=== PATIENT | male | born 1950 | race Caucasian/White ===

== ENCOUNTER 2017-01-04 10:05 | Inpatient (IN) | payer MEDICARE, BC ==
[2017-01-04] MEDS ORDERED: Albuterol-Ipratrop 3 mg / 0.5 (3 ml) UD ONE (10:11)
[2017-01-04] MEDS ORDERED: cefTRIAXone 1 gm 1 GM/100 ML BAG IV STA (10:13)
[2017-01-04] MEDS ORDERED: Magnesium Sulfate 2 GM in Sodium Chloride 0.9% 100 ML IVPB ONE (10:13)
[2017-01-04] MEDS ORDERED: Azithromycin 500MG/NS 250ml 500 MG/250 ML BAG IVPB STA (10:13)
[2017-01-04] MEDS: Albuterol-Ipratrop 3 mg / 0.5 (3 ml) UD IH SCH ×2 (10:23→10:43)
[2017-01-04 10:37] LABS: ADD MANUAL DIFF? NO
--- NOTE | 2017-01-04 10:43 | ED PDOC ---
Arrival/HPI - General Chief Complaint: Shortness Of Breath Time Seen by Provider: 01/04/17 10:10 Historian: Patient - History of Present Illness Narrative History of Present Illness (Text): 01/04/17 12:48 66-year-old male with a history of smoking and COPD/emphysema, presents emergency department with shortness of breath via EMS. Patient's family member reports this episode is similar to his previous COPD exacerbation episodes. No relieving or exacerbating factors. Patient admits to still smoking. Denies any chest pain. Denies any fevers or chills, no other complaints. Time/Duration: Prior to Arrival Symptom Onset: Sudden Activities at Onset: Rest Modifying Factors (Text): none Past Medical History - Provider Review Nursing Documentation Reviewed: Yes - Infectious Disease Hx of Infectious Diseases: None - Pulmonary Hx Emphysema: Yes - Psychiatric Hx Substance Use: No Family/Social History - Physician Review Nursing Documentation Reviewed: Yes Family/Social History: No Known Family HX Smoking Status: Heavy Smoker > 10 Cigarettes Daily Hx Alcohol Use: No Hx Substance Use: No Allergies/Home Meds Allergies/Adverse Reactions: Allergies Unobtainable Allergy (Unverified 01/04/17 10:11) Home Medications: Home Meds Medication Instructions Recorded Confirmed Unobtainable 01/04/17 01/04/17 Review of Systems - Review of Systems Systems not reviewed;Unavailable: Acuity of Condition Physical Exam - Physical Exam Narrative Physical Exam (Text): Physical exam Patient appears age appropriate in no distress - Systems Exam Head: Present: Atraumatic, Normocephalic Pupils: Present: PERRL Extroacular Muscles: Present: EOMI Conjunctiva: Present: Normal Mouth: Present: Dry Mucous Membranes Neck: Present: Normal Range of Motion. No: MIDLINE TENDERNESS, Paraspinal Tenderness Respiratory/Chest: Present: Tachypnea, accessory muscle use, moderate respiratory distress, diffuse wheezing in all lung hernandez. Cardiovascular: Present: Tachycardic, JVD Abdomen: Present: Normal Bowel Sounds. No: Tenderness, Distention, Peritoneal Signs, Rebound, Guarding Back: Present: Normal Inspection. No: Midline Tenderness, Paraspinal Tenderness Upper Extremity: Present: Normal Inspection. No: Cyanosis, Edema Lower Extremity: Present: Normal Inspection. No: Edema Neurological: Present: GCS=15, cranial nerves II through XII fully intact with no cerebellar abnormality, neurosensory fully intact. No focal neurological deficits. Skin: Present: Warm, Dry, Normal Color. No: Rashes Lymphatic: Present: OX3, NI, NC Psychiatric: Present: Alert, Oriented x 3, Normal Insight, Normal Concentration Physical Exam Limitations: Clinical Condition Vital Signs Reviewed: Yes Vital Signs Temp Pulse Resp BP Pulse Ox 01/04/17 13:12 118 H 20 98/63 L 97 01/04/17 12:05 134 H 20 100/62 98 01/04/17 11:30 204 H 24 98/64 L 98 01/04/17 10:13 98.0 F 138 H 25 H 188/125 H 01/04/17 10:10 26 H 95 01/04/17 10:08 144 H 21 188/125 H 90 L Blood Pressure: Hypertensive Pulse: Tachycardic Respiratory Rate: Normal Appearance: Positive for: Well-Appearing, Non-Toxic, Comfortable Pain Distress: None Mental Status: Positive for: Alert and Oriented X 3 Medical Decision Making ED Course and Treatment: Impression: 58-year-old male with respiratory distress, wheezing and accessory muscle use on examination. Seen immediately upon arrival into the emergency department. Respiratory cough for BiPAP. Differential Diagnosis include but are not limited to: COPD, emphysema, pneumonia Plan: -- EKG -- chest xray -- labs -- Respiratory treatment (peak flow) -- Duoneb, Zithromax, Solumedrol, Rocephin, IV fluid, Magnesium Sulfate, Adenosine -- Reassess and disposition Progress Notes: EKG: Ordered, reviewed, and independently interpreted the EKG. Rate : 200 BPM Rhythm : Sinus Tachycardia Interpretation : SVT Comparison : No previous EKG for comparison. Chest xray: Creator : Gus Casanova MD IMPRESSION: COPD. Infiltrate at right lung base. 01/04/17 11:15 Called to bedside, patient is tachycardic around 200s EKG shows SVT Adenosine ordered. Before adenosine given patient's heart rate spontaneously came down to 140s again. Repeat EKG shows sinus tachycardia Patient's respiratory status greatly improved on BiPAP with nebulizers 01/04/17 11:35 Spoke with Night Club Manager, Dr. Higgins Patient seen and accepted to his service by Dr. Thiago Emerson evaluated patient as well 01/04/17 12:10 Seen by stagecraft professor and resident, accepted to the MICU Recommends chest CT, with contrast, on the way to patient's room Order placed - Critical Care Critical Care Minutes: 30 minutes - Lab Interpretations Lab Results: 01/04/17 10:20 01/04/17 10:20 Lab Results 01/04/17 10:20: PT 11.9 H, INR 1.10 H, APTT 28.1 01/04/17 10:20: Sodium 133, Chloride 88 L, Potassium 4.8, Carbon Dioxide 34 H, Anion Gap 16, BUN 13, Creatinine 0.5, Est GFR ( Amer) > 60, Est GFR (Non- Af Amer) > 60, Random Glucose 101, Calcium 9.4, Total Bilirubin 1.2, AST 24, ALT 25, Alkaline Phosphatase 75, Lactate Dehydrogenase 408, Total Creatine Kinase 36, Troponin I < 0.01, NT-Pro-B Natriuret Pep 101, Total Protein 8.6 H, Albumin 4.5, Globulin 4.1, Albumin/Globulin Ratio 1.1 01/04/17 10:20: pO2 32, VBG pH 7.28 L, VBG pCO2 78.0 H*, VBG HCO3 36.7 H, VBG Total CO2 39.1 H, VBG O2 Sat (Calc) 65.9 H, VBG Base Excess 7.0 H, VBG Potassium 4.8, Sodium 131.0 L, Chloride 91.0 L, Glucose 103, Lactate 3.6 H, FiO2 21.0, Venous Blood Potassium 4.8 01/04/17 10:20: WBC 13.2 H, RBC 5.39, Hgb 17.6, Hct 51.2, MCV 95.0, MCH 32.7, MCHC 34.4, RDW 15.2 H, Plt Count 179, MPV 9.1, Gran % 91.3 H, Lymph % (Auto) 5.7 L, Jennings % (Auto) 2.7, Eos % (Auto) 0.1 L, Baso % (Auto) 0.2, Gran # 12.08 H , Lymph # 0.8 L, Jennings # 0.4, Eos # 0.0, Baso # 0.02 I have reviewed the lab results: Yes - RAD Interpretation Radiology Orders: 01/04/17 10:12 CHEST PORTABLE [RAD] Stat - EKG Interpretation Interpreted by ED Physician: Yes Type: 12 lead EKG - Medication Orders Current Medication Orders: Albuterol Sulfate (Albuterol 0.042% Inhal [place] (1.25mg/3ml) Ud) 1.25 mg IH Q3H PAMELA Sodium Chloride (Sodium Chloride 0.9%) 2,000 mls @ 100 mls/hr IV .Q20H PAMELA Ceftriaxone Sodium (Rocephin 2 Gm Ivpb) 2 gm in 100 mls @ 100 mls/hr IVPB DAILY PAMELA PRN Reason: Protocol Azithromycin (Zithromax 500mg In Ns) 500 mg in 250 mls @ 167 mls/hr IVPB DAILY PAMELA PRN Reason: Protocol Methylprednisolone (Solu-Medrol) 60 mg IVP Q12 PAMELA Discontinued Medications Adenosine (Adenosine 6 Mg/2 Ml Inj) 6 mg IVP STAT STA Stop: 01/04/17 11:24 Adenosine (Adenosine 6 Mg/2 Ml Inj) Confirm Administered Dose 12 mg .ROUTE .STK- MED ONE Stop: 01/04/17 11:25 Albuterol/Ipratropium (Duoneb 3 Mg/0.5 Mg (3 Ml) Ud) Confirm Administered Dose 9 ml .ROUTE .STK-MED ONE Stop: 01/04/17 10:12 Last Admin: 01/04/17 10:12 Dose: 9 ml Albuterol/Ipratropium (Duoneb 3 Mg/0.5 Mg (3 Ml) Ud) 3 ml IH Q15M [facility] Stop: 01/04/17 10:46 Last Admin: 01/04/17 10:43 Dose: 3 ml Magnesium Sulfate 2 gm/ Sodium (Chloride) 104 mls @ 102 mls/hr IVPB ONCE ONE Stop: 01/04/17 11:14 Last Admin: 01/04/17 11:05 Dose: 102 mls/hr Ceftriaxone Sodium (Rocephin 1 Gram Ivpb) 1 gm in 100 mls @ 200 mls/hr IV STAT STA PRN Reason: Protocol Stop: 01/04/17 10:42 Last Admin: 01/04/17 10:31 Dose: 200 mls/hr Azithromycin (Zithromax 500mg In Ns) 500 mg in 250 mls @ 167 mls/hr IVPB STAT STA PRN Reason: Protocol Stop: 01/04/17 11:42 Last Admin: 01/04/17 12:38 Dose: 167 mls/hr Iodixanol (Visipaque 320 Mg/Ml 100 Ml) Confirm Administered Dose 100 ml IV .STK- MED ONE Stop: 01/04/17 12:21 Methylprednisolone (Solu-Medrol) 125 mg IVP STAT STA Stop: 01/04/17 10:13 Last Admin: 01/04/17 10:22 Dose: 125 mg - Yosefibe Statement The provider has reviewed the documentation as recorded by the Yosefibparam Thakkar All medical record entries made by the Ibrahima were at my direction and personally dictated by me. I have reviewed the chart and agree that the record accurately reflects my personal performance of the history, physical exam, medical decision making, and the department course for this patient. I have also personally directed, reviewed, and agree with the discharge instructions and disposition. Disposition/Present on Arrival - Present on Arrival Any Indicators Present on Arrival: No History of DVT/PE: No History of Uncontrolled Diabetes: No Urinary Catheter: No History of Decub. Ulcer: No History Surgical Site Infection Following: None - Disposition Have Diagnosis and Disposition been Completed?: Yes Diagnosis: Respiratory distress Disposition: HOSPITALIZED Disposition Time: 12:30 Patient Plan: Admission Patient Problems: Current Active Problems Problem Status Onset Respiratory distress Acute Condition: CRITICAL
[2017-01-04 10:46] LABS: BASO # 0.02 K/mm3 (0.0-2.0); BASO % 0.2 % (0.0-3.0); EOS % 0.1 % (1.5-5.0); GRAN # 12.08 (1.4-6.5); GRAN % 91.3 % (50.0-68.0); HEMATOCRIT 51.2 % (42.0-52.0); LYMPH # 0.8 (1.2-3.4); LYMPH % 5.7 % (22.0-35.0); MEAN CORPUSCULAR HEMOGLOBIN 32.7 pg (25.0-35.0); MEAN CORPUSCULAR HGB CONC 34.4 g/dl (31.0-37.0); MEAN PLATELET VOLUME 9.1 fl (7.0-11.0); MONO # 0.4 (0.1-0.6); MONO % 2.7 % (1.0-6.0); PLATELET COUNT 179 10^3/uL (120.0-450.0); RED CELL DISTRIBUTION WIDTH 15.2 % (11.5-14.5); VENOUS BLOOD PH 7.28 (7.32-7.43); WHITE BLOOD COUNT 13.2 10^3/ul (4.5-11.0)
[2017-01-04 10:51] LABS: ALB/GLOB RATIO 1.1 (1.1-1.8); ALKALINE PHOSPHATASE 75 U/L (38-133); ALT/SGPT 25 U/L (7-56); AST/SGOT 24 U/L (15-59); BILIRUBIN,TOTAL 1.2 mg/dL (0.2-1.3); BLOOD UREA NITROGEN 13 mg/dL (7-21); CALCIUM 9.4 mg/dL (8.4-10.5); CARBON DIOXIDE 34 mmol/L (21-33); CHLORIDE 88 mmol/L (98-107); GFR AFRICAN-AMERICAN > 60; GLUCOSE,RANDOM 101 mg/dL (70-110); POTASSIUM 4.8 mmol/L (3.6-5.0); SODIUM 133 mmol/L (132-148); TOTAL PROTEIN 8.6 g/dL (5.8-8.3)
[2017-01-04 10:53] LABS: INR 1.1 (0.93-1.08); PARTIAL THROMBOPLASTIN TIME 28.1 Seconds (23.7-30.8)
[2017-01-04 11:08] LABS: TROPONIN I < 0.01 ng/mL
[2017-01-04] MEDS ORDERED: Iodixanol 320 MG/ML 100 ML BOTTLE IV ONE (12:20)
--- NOTE | 2017-01-04 12:40 | RAD ---
HISTORY: cough COMPARISON: No prior. FINDINGS: LUNGS: There is an infiltrate at the right lung base suspicious for pneumonia. The lungs are hyperaerated consistent with emphysema. PLEURA: No significant pleural effusion identified, no pneumothorax apparent. CARDIOVASCULAR: Normal. OSSEOUS STRUCTURES: No significant abnormalities. VISUALIZED UPPER ABDOMEN: Normal. OTHER FINDINGS: None. IMPRESSION: COPD. Infiltrate at right lung base
[2017-01-04] MEDS ORDERED: Sodium Chloride 0.9% 2,000 ML IV SCH ×2 (12:45→13:23)
--- NOTE | 2017-01-04 13:17 | CON ---
DATE: 01/04/2017 PULMONARY CONSULTATION REASON FOR CONSULTATION: Chronic obstructive pulmonary disease. REFERRING PHYSICIAN: Dc Das DO. History is obtained via extensive discussion with Dr. Kang (Emergency Room) . I also discussed the history with the [id number] at length. The patient is currently on BiPAP. I have also reviewed the chart at length. The patient is a 66-year-old male with past medical history significant for advanced chronic obstructive pulmonary disease, extensive smoking history - still smokes, who presents to [facility] with worsening shortness of breath, dyspnea on exertion, and cough starting earlier today. There is no history of sputum production. There is no history of chest pain, coughing up of blood, or chest pain - made worse with deep respirations. There is no history of temperatures, chills, or infectious exposure. There is no history of night sweats, weight loss, or appetite change prior to the above events. No history of leg or calf pains. No history of syncope or diaphoresis. No history of recent travel or trauma. REVIEW OF SYSTEMS: No history of nausea, vomiting, or diarrhea. No acute urinary symptoms. No new neurological or musculoskeletal complaints. The rest of the review of systems is negative. ALLERGIES: No known allergies. SOCIAL HISTORY: Positive for extensive tobacco usage--still smokes. No alcohol. FAMILY HISTORY: No inheritable diseases. HOME MEDICATIONS: Not listed in the computer at the present time. PHYSICAL EXAMINATION: GENERAL: The patient is mildly short of breath, but in no acute distress. He is using some accessory muscles for breathing. VITAL SIGNS: Temperature is 98.0, pulse 134, respirations 24, blood pressure 100/62. Oxygen saturation on BiPAP is 98%. HEENT: Normocephalic, atraumatic. NECK: No JVD. CARDIOVASCULAR: Positive S1, S2. No S3. LUNGS: Decreased breath sounds at the bases. Scattered bilateral rhonchi are appreciated. Minimal wheezing is also appreciated. EXTREMITIES: No clubbing, cyanosis, or edema. Calves are nontender to palpation. GASTROINTESTINAL: Abdomen is soft, nontender, nondistended. Bowel sounds are positive. SKIN: No acute rash or excoriation. NEUROLOGIC: Limited at the present time. PERTINENT LABORATORY DATA: Chest x-ray was done today and reviewed. There is extensive COPD noted. There is an infiltrate versus scar at the right base. CBC: White count 13.2, hemoglobin 17.6, hematocrit 51.2, platelets of 179. Complete metabolic profile: Chloride 88, carbon dioxide 34, total protein 8.6. The rest of the metabolic profile is within normal limits. EKG was done in the Emergency Room. Results: Supraventricular tachycardia at approximately 135 beats per minute. IMPRESSION: 1. Acute bronchitis. 2. Advanced chronic obstructive pulmonary disease. 3. Respiratory insufficiency. 4. Rule out pneumonia - right base. 5. Supraventricular tachycardia. PLAN: Again, I did discuss the case with the [id number] at length. I also discussed the case with Dr. Kang at length. The patient presents to [facility] with worsening shortness of breath at rest, dyspnea on exertion, and cough - starting earlier today. The [id number] reports no other pulmonary symptoms. The patient did present to the [facility] Emergency Room with accessory muscle usage and was placed on BiPAP. I did review the x-ray as above. There is a questionable infiltrate versus scar noted at the right lung base. I have also discussed the case with the medical radiation tech at length. Nebulizer treatments and intravenous steroids will be started. Antibiotic therapy has also been started. CAT scan of the chest - angiogram protocol - has also been ordered. Arterial blood gas has also been ordered. The patient's overall condition is very guarded at this point in time. He will be admitted to the medical ICU. I will discuss the above with the rest of the ICU team in the next few moments. I did discuss the above with Dr. Das earlier this morning. Additional pulmonary intervention will be based on the above results, as well as the clinical status of the patient. Thank you very much for this pulmonary consultation. Mic Emerson MD cc: [id number] TT: 01/04/2017 13:16:24 Confirmation # [id number] Dictation # [id number] MTDD
[2017-01-04 13:21] LABS: ARTERIAL BLOOD GAS HCO3 29.7 mmol/L (21-28); ARTERIAL BLOOD GAS O2 CAPACITY 19.1 mL/dl (16-24); ARTERIAL BLOOD GAS O2 CONTENT 18.2 ML/dl (15-23); ARTERIAL BLOOD GAS PH 7.31 (7.35-7.45); ARTERIAL BLOOD HGB O2 SAT 88.8 % (95.0-98.0); CARBOXYHEMOGLOBIN 6.3 % (0.5-1.5); HHB 4.4 % (0-5); METHEMOGLOBIN 0.5 % (0.0-3.0)
[2017-01-04] MEDS: Albuterol 0.042% Inhal Sol (1.25 mg/3 mL) UD IH SCH ×4 (13:34→22:21)
--- NOTE | 2017-01-04 13:37 | CT ---
PROCEDURE: CT Chest with contrast (Pulmonary Angiogram) HISTORY: r/o PE COMPARISON: None available. TECHNIQUE: Axial computed tomography images were obtained of the chest in the pulmonary arterial phase of enhancement. Coronal and sagittal reformatted images were created and reviewed. Intravenous contrast dose: 100 cc of Visipaque Radiation dose: Total exam DLP = 170 mGy-cm. This CT exam was performed using one or more of the following dose reduction techniques: Automated exposure control, adjustment of the mA and/or kV according to patient size, and/or use of iterative reconstruction technique. FINDINGS: PULMONARY ARTERIES: Unremarkable. No pulmonary embolism. AORTA: No acute findings. No thoracic aortic aneurysm. LUNGS: There is COPD with emphysematous changes throughout the lungs. There is a right lower lobe pneumonia posteriorly. PLEURAL SPACES: Unremarkable. No effusion or pneuomothorax. HEART: Unremarkable. No cardiomegaly. No significant pericardial effusion. LYMPH NODES: No lymphadenopathy. BONES, CHEST WALL: Unremarkable. No fracture or destructive lesion OTHER FINDINGS: Unremarkable. IMPRESSION: COPD. Right lower lobe pneumonia. No evidence of pulmonary embolus
[2017-01-04 13:40] VITALS: BMI 16.7
[2017-01-04 14:16] LABS: VENOUS BLOOD GAS BASE EXCESS 0.5 mmol/L (0.0-2.0)
--- NOTE | 2017-01-04 15:19 | CP.PCM.CON ---
<Nirmal Don - Last Filed: 01/04/17 15:00> History of Present Illness - History of Present Illness History of Present Illness: ICU Consult Note Nirmal Don, PGY-1 Internal Medicine HPI: This is a 66 yo M with PMH of COPD/Emphysema and active tobacco abuse who presented with acute onset shortness of breath requiring Bipap and steroids. HPI/ROS are limited and primarily from family at bedside, as patient was on Bipap at time of exam and was unable to speak. Onset of shortness of breath was rapid, began today while visiting a social club, not triggered by activity. Family reports similar to prior COPD exacerbations, but worse this time. Baseline activity status is shortness of breath walking more than one room of his house at a time. Patient denies pain with respiration, chest pain, nausea/ emesis, cough, or syncope/near-syncope. On arrival to the ED, patient was in acute respiratory distress, necessitating BiPAP and administration of multiple Duonebs, however patient then developed SVT in the 200's. Duonebs were stopped, and after 2-3 minutes, patient's HR returned to rapid sinus rhythm (140's) without use of Adenosine. Review of Systems - Review of Systems Systems not reviewed;Unavailable: Respiratory Distress (short of breath, unable to speak on bipap), Language Barrier - Constitutional Constitutional: absent: Chills, Fever - EENT Eyes: absent: Blurred Vision, Loss of Vision Ears: absent: Dizziness Nose/Mouth/Throat: absent: Sore Throat, Neck Pain - Cardiovascular Cardiovascular: Dyspnea (acute onset, not triggerred or exacerbated by activity) . absent: Chest Pain, Diaphoresis, Lightheadedness, Palpitations, Syncope - Respiratory Respiratory: Dyspnea (acute onset, not triggerred or exacerbated by activity). absent: Cough, Hemoptysis, Pain on Inspiration - Gastrointestinal Gastrointestinal: absent: Abdominal Pain, Nausea, Vomiting - Genitourinary Genitourinary: absent: Dysuria, Flank Pain, Hematuria - Musculoskeletal Musculoskeletal: absent: Abnormal Gait, Muscle Weakness, Numbness - Integumentary Integumentary: absent: Pruritus, Rash - Neurological Neurological: absent: Focal Weakness, Loss of Vision, Syncope, Vertigo, Weakness , Other Visual Disturbances - Psychiatric Psychiatric: absent: Anxiety - Endocrine Endocrine: absent: Fatigue, Palpitations Past Patient History - Infectious Disease Hx of Infectious Diseases: None - Past Social History Smoking Status: Heavy Smoker > 10 Cigarettes Daily - PULMONARY Hx Emphysema: Yes - MUSCULOSKELETAL/RHEUMATOLOGICAL Hx Falls: No - PSYCHIATRIC Hx Substance Use: No - SURGICAL HISTORY Hx Surgeries: No Meds Allergies/Adverse Reactions: Allergies Allergy/AdvReac Type Severity Reaction Status Date / Time Unobtainable Allergy Unverified 01/04/17 10:11 - Medications Medications: Current Medications Albuterol Sulfate (Albuterol 0.042% Inhal Bethany (1.25mg/3ml) Ud) 1.25 mg IH Q3H [facility] Last Admin: 01/04/17 13:34 Dose: 1.25 mg Ceftriaxone Sodium (Rocephin 2 Gm Ivpb) 2 gm in 100 mls @ 100 mls/hr IVPB DAILY [facility] PRN Reason: Protocol Azithromycin (Zithromax 500mg In Ns) 500 mg in 250 mls @ 167 mls/hr IVPB DAILY [facility] PRN Reason: Protocol Sodium Chloride (Sodium Chloride 0.9%) 2,000 mls @ 999 mls/hr IV .Q2H1M [facility] Stop: 01/04/17 15:23 Methylprednisolone (Solu-Medrol) 60 mg IVP Q12 [facility] Last Admin: 01/04/17 13:20 Dose: 60 mg Physical Exam - Constitutional Appears: In Acute Distress, Chronically Ill, Other (Severely cachetic, non- toxic but actively-ill appearing) - Head Exam Head Exam: ATRAUMATIC, NORMAL INSPECTION, NORMOCEPHALIC - Eye Exam Eye Exam: EOMI, Normal appearance, PERRL. absent: Conjunctival injection, Scleral icterus (dirty sclera, but no icterus) Pupil Exam: NORMAL ACCOMODATION, PERRL. absent: Fixed, Irregular, Unequal - ENT Exam Additional comments: unable to assess, wearing BiPAP mask at time of exam - Neck Exam Neck exam: Positive for: Normal Inspection. Negative for: Thyromegaly - Respiratory Exam Respiratory Exam: Accessory Muscle Use, Decreased Breath Sounds (very poorly heard and distant sounding breath sounds in all auscultated hernandez, anteriorly/ laterally/posteriorly), Prolonged Expiratory Phase, Respiratory Distress. absent: Chest Wall Tenderness, Clear to Auscultation Bilateral, Rales, Rhonchi, Wheezes, NORMAL BREATHING PATTERN (tachypnic, on BiPAP) - Cardiovascular Exam Cardiovascular Exam: Tachycardia, REGULAR RHYTHM, +S1, +S2. absent: Bradycardia , RRR, +S4 - GI/Abdominal Exam GI & Abdominal Exam: Firm, Pulsatile Mass. absent: Diminished Bowel Sounds, Distended, Hyperactive Bowel Sounds, Hypoactive Bowel Sounds, Rigid, Soft, Tenderness Additional comments: Cachetic - Rectal Exam Rectal Exam: Deferred - Extremities Exam Extremities exam: Positive for: normal inspection. Negative for: calf tenderness, pedal edema, tenderness, pedal pulses present (unable to palpate) - Neurological Exam Neurological exam: Alert, Oriented x3 Additional comments: Motor grossly intact - Psychiatric Exam Psychiatric exam: Normal Affect, Normal Mood - Skin Skin Exam: Dry, Intact, Normal Color, Warm Results - Vital Signs Recent Vital Signs: Last Vital Signs Temp 98.0 F 01/04/17 10:13 Pulse 108 H 01/04/17 14:07 Resp 27 H 01/04/17 13:29 BP 102/66 01/04/17 13:29 Pulse Ox 97 01/04/17 13:12 - Labs Result Diagrams: 01/04/17 10:20 01/04/17 10:20 Labs: Laboratory Results - last 24 hr 01/04/17 01/04/17 13:15 14:11 pCO2 59 H pO2 66.0 L 26 L HCO3 29.7 H ABG pH 7.31 L ABG Total CO2 31.5 H ABG O2 Saturation 95.3 ABG O2 Content 18.2 ABG Base Excess 1.9 ABG Hemoglobin 14.6 ABG Carboxyhemoglobin 6.3 H POC ABG HHb (Measured) 4.4 ABG Methemoglobin 0.5 ABG O2 Capacity 19.1 VBG pH 7.20 L VBG pCO2 79.0 H* VBG HCO3 30.9 H VBG Total CO2 33.3 H VBG O2 Sat (Calc) 57.4 VBG Base Excess 0.5 VBG Potassium 3.9 Hgb O2 Saturation 88.8 L Sodium 133.0 Chloride 96.0 L Glucose 119 H Lactate 3.7 H FiO2 32.0 21.0 Venous Blood Potassium 3.9 Assessment & Plan - Assessment and Plan (Free Text) Assessment: This is a 66 yo M with PMH of COPD/Emphysema and active tobacco abuse who was admitted to the ICU for respiratory insufficiency/pending resp failure requiring BiPAP and new onset SVT. Plan: Neuro: -awake and alert, following commands appropriately -maintain normothermia -high fall risk protocol -PT/OT Pulm: -Satting well on BiPAP, will attempt to wean to NC O2 as feasible -Nebs, Mag Sulfate, and Bipap in ED -Conservative O2 management, avoid excessive O2 in setting of COPD -goal SaO2 > 88%, paO2 > 60 -full code per patient; intubation may be necessary if he isn't able to tolerate BiPAP/NC -CXR shows hyperinflated lungs consistent with COPD, CT Chest negative for PE but positive for RLL pneumonia -ABG on Bipap obtained, pCO2 59, pO2 66, HCO3 29.7, pH 7.31, on FiO2 32%; switched to NC 3L as per RT -Covering with Rocephin and Zithromax IV as per Pulm -Pulm (Dr. Joseph) on board, appreciate all recs -Albuterol IH q3 PAMELA, solumedrol 60mg IV q12 -Repeat CXR and ABG in AM, f/u -Nebs, Mag Sulfate, and Bipap in ED -Likely End-stage COPD, will consult Palliative for goals of care Cardio: -initially rapid rate, regular rhythm in 100's-110's on arrival, SVT x2-3 minutes s/p aggressive duonebs tx, resolved with cessation of duonebs -Adenosine was ordered, but patient broke SVT rhythm prior to administration, so never given -Cardio (Dr. Kam) consulted, appreciate all recs -Heparin SC for DVT ppx GI: -Advanced diet size and thin liquids, as per swallow specialist -Protonix for GI ppx -Very cachetic, Agribusiness Professor consulted for nutrition recs Renal: -Cr 0.5, may see subsequent increase 2/2 dye challenge from CTA -s/p 2L NS bolus, if poor PO intake will add maintenance IVF -monitor and replete electrolytes as needed -avoid nephrotoxic drugs where feasible -maintain euglycemia Heme: -Hgb elevated at 17.6, likely hemoconcentrated, continue to monitor -Heparin for DVT ppx ID: -WBCs 13.2, afebrile -CT chest notable for RLL pneumonia, covering with Rocephin and Zithromax IV -Blood cultures and MRSA screen ordered, pending Endo: -maintain euglycemia (BG 140-180) -on solumedrol, so will experience elevated blood sugars, if remain elevated above 200 can consider adding a sliding scale Dispo: ICU, pending Pulm and Cardio input FEN: Advanced bite size + thin liquids Access: Peripheral IV Consults: Cardio, Pulm, Palliative Ppx: Protonix for GI, Heparin for DVT Patient seen, examined, and discussed with attending, Dr. Higgins. - Date & Time Date: 01/04/17 Time: 16:11 <Gisela MCFARLAND,Daniellevinny H - Last Filed: 01/04/17 16:41> Meds - Medications Medications: Current Medications Albuterol Sulfate (Albuterol 0.042% Inhal Bethany (1.25mg/3ml) Ud) 1.25 mg IH Q3H [facility] Last Admin: 01/04/17 16:09 Dose: 1.25 mg Heparin Sodium (Porcine) (Heparin) 5,000 units SC Q12 [facility] PRN Reason: Protocol Ceftriaxone Sodium (Rocephin 2 Gm Ivpb) 2 gm in 100 mls @ 100 mls/hr IVPB DAILY [facility] PRN Reason: Protocol Azithromycin (Zithromax 500mg In Ns) 500 mg in 250 mls @ 167 mls/hr IVPB DAILY [facility] PRN Reason: Protocol Methylprednisolone (Solu-Medrol) 60 mg IVP Q12 [facility] Last Admin: 01/04/17 13:20 Dose: 60 mg Pantoprazole Sodium (Protonix Inj) 40 mg IVP DAILY [facility] Results - Vital Signs Recent Vital Signs: Last Vital Signs Temp 98.0 F 01/04/17 10:13 Pulse 105 H 01/04/17 16:31 Resp 24 01/04/17 16:31 BP 122/49 L 01/04/17 16:31 Pulse Ox 93 L 01/04/17 16:31 - Labs Result Diagrams: 01/04/17 10:20 01/04/17 10:20 Labs: Laboratory Results - last 24 hr 01/04/17 01/04/17 13:15 14:11 pCO2 59 H pO2 66.0 L 26 L HCO3 29.7 H ABG pH 7.31 L ABG Total CO2 31.5 H ABG O2 Saturation 95.3 ABG O2 Content 18.2 ABG Base Excess 1.9 ABG Hemoglobin 14.6 ABG Carboxyhemoglobin 6.3 H POC ABG HHb (Measured) 4.4 ABG Methemoglobin 0.5 ABG O2 Capacity 19.1 VBG pH 7.20 L VBG pCO2 79.0 H* VBG HCO3 30.9 H VBG Total CO2 33.3 H VBG O2 Sat (Calc) 57.4 VBG Base Excess 0.5 VBG Potassium 3.9 Hgb O2 Saturation 88.8 L Sodium 133.0 Chloride 96.0 L Glucose 119 H Lactate 3.7 H FiO2 32.0 21.0 Venous Blood Potassium 3.9 Attending/Attestation - Attestation I have personally seen and examined this patient.: Yes I have fully participated in the care of the patient.: Yes I have reviewed all pertinent clinical information: Yes Notes (Text): 01/04/17 16:38 66 y/o M w/ COPD exacerbation 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 Poor air entry B/L. Brief SVT resolved after Albuterol effect worn off. Currently on 3 L N.C o2 sat> 92% CT chest done, shows RLL infiltrate. On Rocephin x 8 days Solumedrol 60mg bid, Duoneb q4 standing. Needs Pulmonary Rehab. Walk distance at home 50 feet. Poor QOL. Needs palliative care. dvt p Heparin sq tid cc time 65 min
--- NOTE | 2017-01-04 15:27 | HP ---
HISTORY OF PRESENT ILLNESS: I was called down to the Emergency Room earlier today by Dr. Kang to talk about the patient who is on BiPAP in [facility], bed 7 , finally starting to breathe a little bit better. He had multiple nebulizer treatments that put him into a very fast heart rate, up to 200. It is now down to 140. He is going to go to the intensive care unit for shortness of breath and rapid heart rate, probably SVT. He is here with his family member who speaks [place] and Swiss. His father only speaks [place]ese. He is much more comfortable now by the time I got there since he had nebulizer treatments and high dose oxygen. He is still smoking and he is very uncomfortable at this time in the hospital Emergency Room. PAST MEDICAL HISTORY: COPD, emphysema. No substance abuse. Occasional alcohol. FAMILY HISTORY: No known family history. SOCIAL HISTORY: He still smokes half a pack a day. I do not have his allergy list nor his medication list. They will have to get that to me. REVIEW OF SYSTEMS: No acute vision or hearing changes. He is completely short of breath, very frail, looks like he weighs 80 pounds soaking wet. He can move all his extremities, questionable chest pain with the shortness of breath. No abdominal pain, nausea, vomiting. No headaches or dizziness. PHYSICAL EXAMINATION: VITAL SIGNS: He has 98 temp, up to 204 pulse, up to 26 respiratory rate, blood pressure 188/125 with a 90% O2 sat. HEENT: Head is atraumatic, normocephalic. Throat is dry. NECK: Supple. EYES: Extraocular muscles are intact. Pupils are equal, reactive to light. HEART: Regular rate, extremely tachycardic. LUNGS: Decreased breath sounds bilaterally, almost no airway motion. There is wheezing bilaterally, both hernandez. ABDOMEN: Soft, nontender, positive bowel sounds, no guarding, no rebound, no CVA tenderness, although the belly is scaphoid. EXTREMITIES: Have no edema. He moves all 4 extremities. NEUROLOGICAL: GCS is 15. Cranial nerves grossly intact. No gross neurologic dysfunction at this time. SKIN: Warm and dry. He is thin and frail. He is alert and oriented x 3 through his son translating. Thyroid midline. No palpable lymphadenopathy. LABORATORY DATA: He had multiple tests. He has a 133 sodium, potassium 4.8, BUN 13, creatinine 0.5, GFR is greater than 60, sugar is 101. Calcium is 9.4, total bili is 1.2, AST is 24, ALT is 25, alk phos 75. dehydrogenase is 408. Troponin I is less than 0.01. BNP is 101, total protein is 8.6, albumin is 4.5. Blood gas: He had a pCO2 of 59 with a pO2 of 66, a 7.2 pH. INR is 1.1. White count is up to 13.2, hemoglobin 17.6, hematocrit 51.2, platelets are 179. He had a CAT scan of the chest and a chest x-ray. Chest CAT scan shows COPD, right lower lobe pneumonia. No evidence of PE. He is currently on albuterol, ceftriaxone, IV fluids, which are wide open right now; Solu-Medrol 60 IV q.12, which is a large dose and Zithromax IV. He was here for COPD, right lower lobe pneumonia, tachycardia, probably SVT. Have a consult with pulmonary and cardio and the endocrinology teacher. He will go in the intensive care unit. We will watch him very closely. Discuss with the family. Dc Das DO cc: [id number] TT: 01/04/2017 15:26:31 sn MTDD
--- NOTE | 2017-01-04 20:56 | CARD ---
APPROVED REPORT EKG Measurement Heart [id number] <Conclusion> Sinus tachycardia with premature supraventricular complexes and fusion complexes Right axis deviation Anterior infarct, age undetermined Abnormal ECG
--- NOTE | 2017-01-04 20:57 | CARD ---
APPROVED REPORT EKG Measurement Heart [id number] <Conclusion> Poor data quality, interpretation may be adversely affected Supraventricular tachycardia Rightward axis Low voltage QRS Cannot rule out Anterior infarct, age undetermined ST & T wave abnormality, consider inferior ischemia Abnormal ECG
[2017-01-05] MEDS: Albuterol 0.042% Inhal Sol (1.25 mg/3 mL) UD IH SCH ×6 (00:32→21:36)
[2017-01-05 05:43] LABS: ARTERIAL BLOOD GAS HCO3 32.9 mmol/L (21-28); ARTERIAL BLOOD GAS O2 CAPACITY 19.1 mL/dl (16-24); ARTERIAL BLOOD GAS O2 CONTENT 18.5 ML/dl (15-23); ARTERIAL BLOOD GAS PH 7.28 (7.35-7.45); ARTERIAL BLOOD HGB O2 SAT 92.6 % (95.0-98.0); CARBOXYHEMOGLOBIN 3.4 % (0.5-1.5); METHEMOGLOBIN 1.1 % (0.0-3.0)
[2017-01-05 05:50] LABS: HEMATOCRIT 44.2 % (42.0-52.0); MEAN CELL VOLUME 95.3 fL (80.0-105.0); MEAN CORPUSCULAR HEMOGLOBIN 31.5 pg (25.0-35.0); RED CELL DISTRIBUTION WIDTH 15.5 % (11.5-14.5); WHITE BLOOD COUNT 12.3 10^3/ul (4.5-11.0)
[2017-01-05 06:04] LABS: ALB/GLOB RATIO 1.1 (1.1-1.8); ALKALINE PHOSPHATASE 49 U/L (38-133); ALT/SGPT 24 U/L (7-56); AST/SGOT 23 U/L (15-59); BLOOD UREA NITROGEN 15 mg/dL (7-21); CALCIUM 8.3 mg/dL (8.4-10.5); CARBON DIOXIDE 32 mmol/L (21-33); CHLORIDE 96 mmol/L (98-107); GFR AFRICAN-AMERICAN > 60; GLUCOSE,RANDOM 127 mg/dL (70-110); MAGNESIUM 2.1 mg/dL (1.7-2.2); PHOSPHOROUS 3.3 mg/dL (2.5-4.5); POTASSIUM 4.1 mmol/L (3.6-5.0); SODIUM 135 mmol/L (132-148); TOTAL PROTEIN 6.6 g/dL (5.8-8.3)
--- NOTE | 2017-01-05 07:44 | PN ---
DATE: 01/05/2017(615am--705am) SUBJECTIVE: The patient is currently in the ICU. He is mildly short of breath , but in no acute distress. PHYSICAL EXAMINATION: VITAL SIGNS: Temperature is 98.6, pulse 83, respirations 22/24, blood pressure 90/60. Oxygen saturation on nasal cannula is currently 95%. HEENT: Normocephalic, atraumatic. No JVD. CARDIOVASCULAR: Positive S1, S2. No S3. LUNGS: Decreased breath sounds at the bases. Less rhonchi. Less wheezing. EXTREMITIES: No clubbing, cyanosis, or edema. Calves are nontender to palpation. GASTROINTESTINAL: Abdomen is soft, nontender, nondistended. Bowel sounds are positive. SKIN: No acute rash. NEUROLOGIC: Limited at the present time. PERTINENT LABORATORY DATA: CAT scan of the chest was done yesterday as an angiogram protocol. There is no pulmonary embolism seen. There is severe chronic obstructive pulmonary disease. There is a small patchy right lower lobe pneumonia seen. Arterial blood gas was done on nasal cannula this morning. Results are: pH 7.28, pCO2 of 70, pO2 of 76. Chest x-ray was also done this morning and reviewed. It is similar to yesterday's film. IMPRESSION: 1. Acute bronchitis. 2. Advanced chronic obstructive pulmonary disease. 3. Respiratory insufficiency. 4. Right lower lobe pneumonia. 5. Cardiac arrhythmias. PLAN: The patient appears comfortable this morning. He is awake and alert. He is mildly short of breath, but in no acute distress. I did discuss the case with the night nurse at length. The night nurse stated that the patient did have a good night. However, he did refuse his BiPAP at night. I did discuss this issue with the patient at length. Hopefully, he will comply. I have also discussed the case with the territory sales manager medical at length. On physical exam, there is less bronchospasm noted. I will continue with the current nebulizer treatments and current intravenous steroids for now. The patient also remains on antibiotic therapy. There are no temperatures noted. The leukocytosis is decreased. Clinical status of the patient is certainly improved -- compared to yesterday. However, the overall status/prognosis of this patient does remain guarded. I will discuss the above with the entire ICU team in the next few moments. I will discuss the above with the attending physician later this morning. Mic Emerson MD cc: [id number] TT: 01/05/2017 07:44:00 Confirmation # [id number] Dictation # [id number] MTDD
--- NOTE | 2017-01-05 08:09 | PN ---
DATE: 01/05/2017 I saw him in the intensive care unit. He is refusing to put the BiPAP mask on, just has a nasal mira tushar on, but he is doing much better. He is talking better in Barb[place]. He is much better mentally an d he feels better physically. MEDICATIONS: He is on albuterol, heparin, Protonix, Rocephin 2 grams IV piggyback, Solu-Medrol at 60 IV q. 12 and Zithromax. He is also a little bit hungry. PHYSICAL EXAMINATION: VITAL SIGNS: He has got a 97.7 temp, 83 pulse, 96/67 blood pressure, 30 respiratory rate, and 98% O2 sat on nasal cannula. HEENT: His head is atraumatic, normocephalic. Throat is moist. NECK: Supple. HEART: Regular rate. LUNGS: Decreased breath sounds bilaterally, poor inspiration. ABDOMEN: Soft, scaphoid. EXTREMITIES: No edema. He is on the medications I discussed. LABORATORY DATA: His lab test: A 12.3 white count. It came down 1 point. 14.6 hemoglobin, 44.2 he matocrit with 142 platelets. He has a 135 sodium, potassium is 4.1, BUN 50, creatinine 0.5, GFR is g reater than 60, sugar is 127, calcium is 8.3, phosphorus 3.3, magnesium 2.1, total bili is 1, AST is 23, ALT is 24, alk phos 49, total protein 6.6, albumin is 3.4. He is improving. He is being seen by pulmonary. Cardiology was consulted. He has acute bronchitis, advanced chronic obstructive pulmonary disease, respiratory insufficiency, right lower lobe pneumoni a, cardiac arrhythmias which I believe have improved. His pulse was as high as 200, now it is down t o 80, blood pressure is still quite low. I think he might need another day in the intensive care uni t. He is not finished yet with the care. He is still quite sick. He is here for chronic obstructiv e pulmonary disease, acute bronchitis, supraventricular tachycardia, right lower lobe pneumonia. Con tinue aggressive treatment and care. Dc Das DO cc: [id number] TT: 01/05/2017 08:08:25 Confirmation # [id number] Dictation # [id number] tn
--- NOTE | 2017-01-05 08:35 | PQF RESP ---
This form is a permanent part of the medical record Clarification of your documentation is requested to better reflect the severity of illness and intensity of treatment of your patient. Indicators present Documentation of respiratory insufficiency requires further documentation of acuity & type. Pt presented with severe distress, unable to speak. Wheezing & using accessory muscles requiring BiPAP. placed in ICU. ABG's elevated pCO2 & HCO3.Please indicate if respiratory failure was POA. [x] Use of Home Oxygen [x] Respiratory rate > 28 or <8/min (Labored respirations) [x] PCO2 > 50 mm Hg or (Hypercapnia) (somnolence) [] PaO2 < 60 mm Hg or Hypoxemia (confusion) [x] ABG blood gas pH < 7.35 [] SpO2 < 90% sat on Room Air [] Cyanosis [x] Unable to Speak in Full Sentences [x] Use of Accessory Muscles / Tripoding [x] Wheezing [] Other: [] Location in the medical record that reflects the above clinical findings: []ER presentation & admission ABG Treatment Provided: []BiPAP, IV Solumedrol PHYSICIAN'S RESPONSE Based on your medical judgment of the clinical indicators outlined above, are you treating this patient for a known or suspected: [x] Acute Respiratory Failure (hypoxia or hypercapnia) [] Chronic Respiratory Failure (hypoxia or hypercapnia) [] Acute on Chronic Respiratory Failure (hypoxia or hypercapnia) [] Hypoxemia please specify ACUTE, CHRONIC or ACUTE on CHRONIC [] Other []_ [] If unable to determine, please check the box, sign and date. Present On Admission (POA) Indicator: [x] Present at the time of admission [] Not present at the time of admission [] Clinically Undetermined In responding to this query, please exercise your independent professional judgment. The fact that a question is asked does not imply that any particular answer is desired or expected. Thank you for your clarification on this documentation. If you have any questions please call:[ ][phone] * Thank you, [ ]Jayla Celis RN CDS skimmer scoop operator Chronic Respiratory Failure Description: Respiratory failure is a syndrome in which the respiratory system fails in one or both of its gas exchange functions: oxygenation and carbon dioxide elimination. In theory, respiratory failure is defined as a Pa02 value of <60 mm/Hg or a PaC02 of >50 mm/Hg. However, these values may be affected by renal compensation. Respiratory failure may be acute or chronic. While acute respiratory failure is characterized by life-threatening derangement in arterial blood gases and acid-base balance, the manifestations of chronic respiratory failure are less dramatic and may not be as readily apparent. Classifications: Respiratory failure may be classified as hypoxemic (usually characterized by Pa02 of <60 mm/Hg) or hypercapnic (usually characterized by PaC02 >50 mm/Hg) and either may be acute or chronic. Chronic hypercapnic respiratory failure develops over time and allows for renal compensation and an increase in bicarbonate concentration; therefore the pH is usually only slightly decreased. The distinction between acute and chronic hypoxemic respiratory failure cannot readily be made on the basis of ABGs; the clinical markers of chronic hypoxemia, such as polythycemia or cor pulmonale suggest a long standing disorder (chronic hypoxemic respiratory failure). Clinical Indicators: dyspnea at rest or "chronic" dyspnea, concomitant conditions such as polycythemia or cor pulmonale, requirement for continuous oxygen support, forced expiratory volume in one second (FEV1) of 49 or less, pursed lip breathing, "barrel" chest, hyperinflation by CXR, muscle wasting, malnutrition/obesity, poor exercise capacity, peripheral edema, description as a "blue bloater" (usually associated with chronic, obstructive bronchitis) or "pink puffer" (usually associated with emphysema) Risks: Chronic Hypoxemic Respiratory Failure - COPD, pulmonary fibrosis, asthma , pulmonary arterial hypertension, granulomatous lung diseases, congenital heart disease, bronchiectasis, kyphoscoliosis, obesity; Chronic Hypercapnic Respiratory Failure - COPD, severe asthma, myasthenia gravis, polyneuropathy, polio, head and cervical spine injuries, obesity hypoventilation syndrome. Treatment: supplemental oxygen, bronchodilators, corticosteroids, adequate nutrition, lung transplant References: Am. J. Respir. Crit. Care Med. "Global Strategy for the Diagnosis, Management and Prevention of COPD: GOLD Exectuive Summary," Suresh Mcclellan Anzueto - 2007; Proceedings of the [place] [employer] "Mechanisms and Measurements of Dyspnea in COPD," Nicola - 2006; WebMD; Respiratory Failure, Marcos Norwood MD - 03/2006; [employer]ito's Principles of Internal Medicine, 17th edition. Acute Respiratory Failure Acute Respiratory Failure indicators include: ~Respirations >28 ~Air hunger ~Use of accessory muscles of respiration ~Inability to speak in full sentences Cyanosis ~Pulse ox <90% RA or <95% on O2 pH <7.35 or >7.45 ~pO2 < 60 mm Hg (or 10mm below COPD patient's baseline) ~pCO2 >50mm Hg (or 10mm above COPD patient's baseline) "Respiratory failure may be assigned as a principal diagnosis when it is the condition established after study to be chiefly responsible for occasioning admission to the hospital. The fact that the respiratory failure was managed without intubation and mechanical ventilation does not preclude its use." [facility], 3rd Qtr., 1988, p. 7 MTDD
[2017-01-05] MEDS: Azithromycin 500MG/NS 250ml 500 MG/250 ML BAG IVPB SCH (09:03)
[2017-01-05] MEDS: cefTRIAXone 2 GM IN NS 2 GM/100 ML BAG IVPB SCH (09:04)
--- NOTE | 2017-01-05 10:38 | RAD ---
HISTORY: follow up COMPARISON: 01/04/2017 FINDINGS: LUNGS: No change in alveolar infiltrate right lung base. COPD PLEURA: No significant pleural effusion identified, no pneumothorax apparent. CARDIOVASCULAR: Normal. OSSEOUS STRUCTURES: No significant abnormalities. VISUALIZED UPPER ABDOMEN: Normal. OTHER FINDINGS: None. IMPRESSION: No change in alveolar infiltrate right lung base. COPD
--- NOTE | 2017-01-05 10:45 | CP.CCUPN ---
<Nirmal Don - Last Filed: 01/05/17 11:38> CCU Subjective - Physician Review Subjective (Free Text): 01/05/17 10:40 Patient seen and examined at bedside in the ICU. Today is hospital day 2. Overnight, refused Bipap, continue to sat well on 3L NC. Today, denies pain with respiration, chest pain, cough. Resting comfortably in chair next to bed at time of exam. Speaking without obvious dyspnea. CCU Objective - Vital Signs / Intake & Output Vital Signs (Last 4 hours): Vital Signs Temp Pulse Resp BP Pulse Ox 01/05/17 09:50 94 H 30 H 91 L 01/05/17 09:40 98 H 33 H 92 L 01/05/17 09:30 93 H 24 90 L 01/05/17 09:20 101 H 35 H 91 L 01/05/17 09:10 96 H 37 H 90 L 01/05/17 09:08 93 H 32 H 93/59 L 91 L 01/05/17 09:07 101 H 23 91/61 L 93 L 01/05/17 09:06 90 23 92/62 L 92 L 01/05/17 09:05 101 H 36 H 100/62 92 L 01/05/17 09:04 94 H 34 H 97/62 L 92 L 01/05/17 09:00 111 H 34 H 131/71 92 L 01/05/17 08:50 100 H 26 H 91 L 01/05/17 08:40 96 H 31 H 90 L 01/05/17 08:37 96 H 31 H 01/05/17 08:30 90 34 H 93 L 01/05/17 08:20 87 94 L 01/05/17 08:10 94 H 48 H 92 L 01/05/17 08:00 94 H 24 157/65 H 91 L 01/05/17 07:50 90 27 H 94 L 01/05/17 07:40 95 H 26 H 94 L 01/05/17 07:30 79 96 01/05/17 07:20 82 26 H 93 L 01/05/17 07:10 82 29 H 93 L 01/05/17 07:07 80 01/05/17 07:04 97.7 F 80 31 H 98/54 L 93 L 01/05/17 07:03 83 30 H 99/68 L 92 L 01/05/17 07:02 82 30 H 96/67 L 92 L 01/05/17 07:00 86 34 H 91 L 01/05/17 06:50 81 29 H 91 L Intake and Output (Last 8hrs): Intake & Output 01/04/17 01/05/17 01/05/17 22:59 06:59 14:59 Intake Total 2550 200 Output Total 850 Balance 2550 -650 Intake: Oral 200 200 Other 2350 Output: Urine 850 Urine, Voided 850 Other: Voiding Method Urinal Urinal # Voids Urine, Voided 550 2 # Bowel Movements 0 0 - Physical Exam Head: Positive for: Atraumatic, Normocephalic. Negative for: Contusion, Abrasion, Laceration Extroacular Muscles: Positive for: EOMI. Negative for: Gaze Palsy, Entrapment Conjunctiva: Positive for: Normal. Negative for: Injected, Icteric Mouth: Positive for: Moist Mucous Membranes. Negative for: Drooling, Normal Teeth (missing upper teeth) Nose (External): Positive for: Atraumatic, Other (wearing nasal canula). Negative for: Abrasion, Contusion, Laceration Neck: Positive for: Normal Range of Motion. Negative for: JVD Respiratory/Chest: Positive for: Wheezes (end-expiratory faint wheezes), Decreased Breath Sounds (signficantly decreased breath sounds in all auscultated regions, but improved as compared to status on admission). Negative for: Clear to Auscultation, Good Air Exchange, Respiratory Distress, Accessory Muscle Use, Rales, Rhonchi Cardiovascular: Positive for: Regular Rate and Rhythm, Normal S1, S2. Negative for: Murmurs, Irregular Rhythm, Tachycardic, Bradycardic Abdomen: Positive for: Normal Bowel Sounds, Other (Pulsatile mass, inferior to xiphoid process along abdominal midline). Negative for: Distention, Ostomy Tubes Upper Extremity: Positive for: Normal Inspection, Normal ROM, NORMAL PULSES, Other (cachetic). Negative for: Cyanosis, Edema, Tenderness, Swelling, Erythema , Deformity Lower Extremity: Positive for: Normal Inspection, NORMAL PULSES, Normal ROM, Other (cachetic). Negative for: Edema, CALF TENDERNESS, Cyanosis, Tenderness, Swelling, Erythema, Deformity Neurological: Positive for: GCS=15, CN II-XII Intact, Speech Normal, Motor Func Grossly Intact Skin: Positive for: Warm, Dry, Normal Color. Negative for: Rashes Psychiatric: Positive for: Alert, Oriented x 3, Normal Affect, Normal Mood. Negative for: Anxious, Agitated - Medications Active Medications: Active Medications Generic Name Dose Route Start Last Admin Trade Name Freq PRN Reason Stop Dose Admin Albuterol Sulfate 1.25 mg 01/04/17 12:45 01/05/17 07:25 Albuterol 0.042% Inhal Bethany (1.25mg/3ml) Ud IH 1.25 mg Q3H PAMELA Administration Heparin Sodium (Porcine) 5,000 units 01/04/17 22:00 01/05/17 09:05 Heparin SC 5,000 units Q12 PAMELA Administration Protocol Ceftriaxone Sodium 2 gm in 100 mls @ 100 mls/hr 01/05/17 10:00 01/05/17 09:04 Rocephin 2 Gm Ivpb IVPB 100 mls/hr DAILY PAMELA Administration Protocol Azithromycin 500 mg in 250 mls @ 167 mls/hr 01/05/17 10:00 01/05/17 09:03 Zithromax 500mg In Ns IVPB 167 mls/hr DAILY APMELA Administration Protocol Methylprednisolone 60 mg 01/04/17 12:45 01/05/17 09:05 Solu-Medrol IVP 60 mg Q12 PAMELA Administration Pantoprazole Sodium 40 mg 01/05/17 10:00 01/05/17 09:04 Protonix Inj IVP 40 mg DAILY PAMELA Administration - Patient Studies Lab Studies: Lab Studies 01/05/17 01/05/17 01/05/17 Range/Units 05:30 05:15 05:15 WBC 12.3 H (4.5-11.0) 10^3/ul RBC 4.64 (3.5-6.1) 10^6/uL Hgb 14.6 (14.0-18.0) gm/dL Hct 44.2 (42.0-52.0) % MCV 95.3 (80.0-105.0) fL MCH 31.5 (25.0-35.0) pg MCHC 33.0 (31.0-37.0) g/dl RDW 15.5 H (11.5-14.5) % Plt Count 142 (120.0-450.0) 10^3/uL MPV 9.0 (7.0-11.0) fl pCO2 70 H (35-45) mm/Hg pO2 76.0 L (80-100) mm/Hg HCO3 32.9 H (21-28) mmol/L ABG pH 7.28 L (7.35-7.45) ABG Total CO2 35.0 H (22-28) mmol.L ABG O2 Saturation 96.9 (95-98) % ABG O2 Content 18.5 (15-23) ML/dl ABG Base Excess 3.8 H (-2.0-3.0) mmol/L ABG Hemoglobin 14.2 (11.7-17.4) g/dL ABG Carboxyhemoglobin 3.4 H (0.5-1.5) % POC ABG HHb (Measured) 3.0 (0-5) % ABG Methemoglobin 1.1 (0.0-3.0) % ABG O2 Capacity 19.1 (16-24) mL/dl VBG pH (7.32-7.43) VBG pCO2 (40-60) VBG HCO3 (21-28) mmol/l VBG Total CO2 (22-28) mmol.L VBG O2 Sat (Calc) (40-65) % VBG Base Excess (0.0-2.0) mmol/L VBG Potassium (3.6-5.2) mmol/L Hgb O2 Saturation 92.6 L (95.0-98.0) % Sodium 135 (132-148) mmol/L Chloride 96 L (98-107) mmol/L Glucose (75-110) mg/dl Lactate (0.7-2.1) mmol/L FiO2 28.0 % Potassium 4.1 (3.6-5.0) mmol/L Carbon Dioxide 32 (21-33) mmol/L Anion Gap 11 (10-20) BUN 15 (7-21) mg/dL Creatinine 0.5 (0.5-1.4) mg/dL Est GFR ( Amer) > 60 Est GFR (Non-Af Amer) > 60 Random Glucose 127 H (70-110) mg/dL Calcium 8.3 L (8.4-10.5) mg/dL Phosphorus 3.3 (2.5-4.5) mg/dL Magnesium 2.1 (1.7-2.2) mg/dL Total Bilirubin 1.0 (0.2-1.3) mg/dL AST 23 (15-59) U/L ALT 24 (7-56) U/L Alkaline Phosphatase 49 (38-133) U/L Total Protein 6.6 (5.8-8.3) g/dL Albumin 3.4 (3.0-4.8) g/dL Globulin 3.2 gm/dL Albumin/Globulin Ratio 1.1 (1.1-1.8) Venous Blood Potassium (3.6-5.2) mmol/L 01/04/17 01/04/17 Range/Units 14:11 13:15 WBC (4.5-11.0) 10^3/ul RBC (3.5-6.1) 10^6/uL Hgb (14.0-18.0) gm/dL Hct (42.0-52.0) % MCV (80.0-105.0) fL MCH (25.0-35.0) pg MCHC (31.0-37.0) g/dl RDW (11.5-14.5) % Plt Count (120.0-450.0) 10^3/uL MPV (7.0-11.0) fl pCO2 59 H (35-45) mm/Hg pO2 26 L 66.0 L (80-100) mm/Hg HCO3 29.7 H (21-28) mmol/L ABG pH 7.31 L (7.35-7.45) ABG Total CO2 31.5 H (22-28) mmol.L ABG O2 Saturation 95.3 (95-98) % ABG O2 Content 18.2 (15-23) ML/dl ABG Base Excess 1.9 (-2.0-3.0) mmol/L ABG Hemoglobin 14.6 (11.7-17.4) g/dL ABG Carboxyhemoglobin 6.3 H (0.5-1.5) % POC ABG HHb (Measured) 4.4 (0-5) % ABG Methemoglobin 0.5 (0.0-3.0) % ABG O2 Capacity 19.1 (16-24) mL/dl VBG pH 7.20 L (7.32-7.43) VBG pCO2 79.0 H* (40-60) VBG HCO3 30.9 H (21-28) mmol/l VBG Total CO2 33.3 H (22-28) mmol.L VBG O2 Sat (Calc) 57.4 (40-65) % VBG Base Excess 0.5 (0.0-2.0) mmol/L VBG Potassium 3.9 (3.6-5.2) mmol/L Hgb O2 Saturation 88.8 L (95.0-98.0) % Sodium 133.0 (132-148) mmol/L Chloride 96.0 L (98-107) mmol/L Glucose 119 H (75-110) mg/dl Lactate 3.7 H (0.7-2.1) mmol/L FiO2 21.0 32.0 % Potassium (3.6-5.0) mmol/L Carbon Dioxide (21-33) mmol/L Anion Gap (10-20) BUN (7-21) mg/dL Creatinine (0.5-1.4) mg/dL Est GFR ( Amer) Est GFR (Non-Af Amer) Random Glucose (70-110) mg/dL Calcium (8.4-10.5) mg/dL Phosphorus (2.5-4.5) mg/dL Magnesium (1.7-2.2) mg/dL Total Bilirubin (0.2-1.3) mg/dL AST (15-59) U/L ALT (7-56) U/L Alkaline Phosphatase (38-133) U/L Total Protein (5.8-8.3) g/dL Albumin (3.0-4.8) g/dL Globulin gm/dL Albumin/Globulin Ratio (1.1-1.8) Venous Blood Potassium 3.9 (3.6-5.2) mmol/L Laboratory Results - last 24 hr 01/04/17 01/04/17 01/05/17 13:15 14:11 05:15 WBC 12.3 H RBC 4.64 Hgb 14.6 Hct 44.2 MCV 95.3 MCH 31.5 MCHC 33.0 RDW 15.5 H Plt Count 142 MPV 9.0 pCO2 59 H pO2 66.0 L 26 L HCO3 29.7 H ABG pH 7.31 L ABG Total CO2 31.5 H ABG O2 Saturation 95.3 ABG O2 Content 18.2 ABG Base Excess 1.9 ABG Hemoglobin 14.6 ABG Carboxyhemoglobin 6.3 H POC ABG HHb (Measured) 4.4 ABG Methemoglobin 0.5 ABG O2 Capacity 19.1 VBG pH 7.20 L VBG pCO2 79.0 H* VBG HCO3 30.9 H VBG Total CO2 33.3 H VBG O2 Sat (Calc) 57.4 VBG Base Excess 0.5 VBG Potassium 3.9 Hgb O2 Saturation 88.8 L Sodium 133.0 Chloride 96.0 L Glucose 119 H Lactate 3.7 H FiO2 32.0 21.0 Potassium Carbon Dioxide Anion Gap BUN Creatinine Est GFR ( Amer) Est GFR (Non-Af Amer) Random Glucose Calcium Phosphorus Magnesium Total Bilirubin AST ALT Alkaline Phosphatase Total Protein Albumin Globulin Albumin/Globulin Ratio Venous Blood Potassium 3.9 01/05/17 01/05/17 05:15 05:30 WBC RBC Hgb Hct MCV MCH MCHC RDW Plt Count MPV pCO2 70 H pO2 76.0 L HCO3 32.9 H ABG pH 7.28 L ABG Total CO2 35.0 H ABG O2 Saturation 96.9 ABG O2 Content 18.5 ABG Base Excess 3.8 H ABG Hemoglobin 14.2 ABG Carboxyhemoglobin 3.4 H POC ABG HHb (Measured) 3.0 ABG Methemoglobin 1.1 ABG O2 Capacity 19.1 VBG pH VBG pCO2 VBG HCO3 VBG Total CO2 VBG O2 Sat (Calc) VBG Base Excess VBG Potassium Hgb O2 Saturation 92.6 L Sodium 135 Chloride 96 L Glucose Lactate FiO2 28.0 Potassium 4.1 Carbon Dioxide 32 Anion Gap 11 BUN 15 Creatinine 0.5 Est GFR ( Amer) > 60 Est GFR (Non-Af Amer) > 60 Random Glucose 127 H Calcium 8.3 L Phosphorus 3.3 Magnesium 2.1 Total Bilirubin 1.0 AST 23 ALT 24 Alkaline Phosphatase 49 Total Protein 6.6 Albumin 3.4 Globulin 3.2 Albumin/Globulin Ratio 1.1 Venous Blood Potassium EKG/Cardiology Studies: Cardiology / EKG Studies 01/04/17 11:21 EKG [ELECTROCARDIOGRAM] Stat Comment: Reason For Exam: SOB 01/04/17 11:28 EKG [ELECTROCARDIOGRAM] Stat Comment: Reason For Exam: SOB 01/05/17 07:00 EKG [ELECTROCARDIOGRAM] DAILY Comment: Reason For Exam: f/u, SVT Review of Systems - Review of Systems Systems not reviewed;Unavailable: Language Barrier Review of Systems: No complaints verbalized, states feeling better generally Critical Care Progress Note - Nutrition Nutrition: Nutrition Category Date Time Status Dysphagia/Modified Consistency Diet [DIET] Diets 01/04/17 Dinner Ordered Assessment/Plan - Assessment and Plan (Free Text) Assessment: This is a 66 yo M with PMH of COPD/Emphysema and active tobacco abuse who was admitted to the ICU for respiratory insufficiency/pending resp failure requiring BiPAP and new onset SVT. Today, he is off Bipap and satting well, and SVT has resolved. Pending transfer to Med/Surg. Plan: Neuro: -awake and alert, following commands appropriately -maintain normothermia -high fall risk protocol -PT/OT Pulm: -Satting well on NC 3L -Conservative O2 management, avoid excessive O2 in setting of COPD -goal SaO2 > 88%, paO2 > 60 -CXR shows hyperinflated lungs consistent with COPD, CT Chest negative for PE but positive for RLL pneumonia -AM ABG reviewed, improved HCO3, increased CO2, pH unchanged -Covering with Rocephin and Zithromax IV as per Pulm -Pulm (Dr. Joseph) on board, appreciate all recs -Albuterol IH q3 PAMELA, solumedrol 60mg IV q12 -Likely End-stage COPD, Palliative consulted Cardio: -SVT in the ED, self-resolved prior to any adenosine admission, HR today NSR 80- 105 -Adenosine was ordered, but patient broke SVT rhythm prior to administration, so never given -some elevated HR may be 2/2 dehydration, HR improved after 2L NS bolus yesterday, and Hgb decrease suggestive of hemoconcentration -Cardio (Dr. Kam) consulted, appreciate all recs -Heparin SC for DVT ppx GI: -Advanced diet size and thin liquids, as per swallow specialist -Protonix for GI ppx -Very cachetic, Planning Coordinator consulted for nutrition recs Renal: -Cr remains 0.5 -monitor and replete electrolytes as needed -avoid nephrotoxic drugs where feasible -maintain euglycemia Heme: -Hgb decreased from 17.6 14.6, likely 2/2 hemoconcentration, continue to monitor -Heparin for DVT ppx ID: -WBCs 12.3, afebrile -CT chest notable for RLL pneumonia, covering with Rocephin and Zithromax IV -Blood cultures and MRSA screen ordered, pending Endo: -maintain euglycemia (BG 140-180) -on solumedrol, so will experience elevated blood sugars, continue to monitor Dispo: ICU, pending transfer to Med/Surg FEN: Advanced bite size + thin liquids, Ensures Access: Peripheral IV Consults: Cardio, Pulm, Palliative Ppx: Protonix for GI, Heparin for DVT Patient seen, examined, and discussed with attending, Dr. Higgins. - Date & Time Date: 01/05/17 Time: 11:40 <Gisela MCFARLAND,Tianna H - Last Filed: 01/05/17 12:42> CCU Objective - Vital Signs / Intake & Output Vital Signs (Last 4 hours): Vital Signs Temp Pulse Resp BP Pulse Ox 01/05/17 12:30 92 H 30 H 107/66 94 L 01/05/17 11:26 93/59 L 01/05/17 11:24 98.6 F 01/05/17 11:20 90 L 01/05/17 11:10 90 L 01/05/17 11:00 92 H 92 L 01/05/17 10:50 104 H 91 L 01/05/17 10:40 97 H 37 H 92 L 01/05/17 10:30 100 H 26 H 93 L 01/05/17 10:20 104 H 37 H 92 L 01/05/17 10:10 95 H 28 H 93 L 01/05/17 10:00 99 H 38 H 93 L 01/05/17 09:50 94 H 30 H 91 L 01/05/17 09:40 98 H 33 H 92 L 01/05/17 09:30 93 H 24 90 L 01/05/17 09:20 101 H 35 H 91 L 01/05/17 09:10 96 H 37 H 90 L 01/05/17 09:08 93 H 32 H 93/59 L 91 L 01/05/17 09:07 101 H 23 91/61 L 93 L 01/05/17 09:06 90 23 92/62 L 92 L 01/05/17 09:05 101 H 36 H 100/62 92 L 01/05/17 09:04 94 H 34 H 97/62 L 92 L 01/05/17 09:00 111 H 34 H 131/71 92 L 01/05/17 08:50 100 H 26 H 91 L 01/05/17 08:40 96 H 31 H 90 L Intake and Output (Last 8hrs): Intake & Output 01/04/17 01/05/17 01/05/17 22:59 06:59 14:59 Intake Total 2550 200 Output Total 850 Balance 2550 -650 Intake: Oral 200 200 Other 2350 Output: Urine 850 Urine, Voided 850 Other: Voiding Method Urinal Urinal # Voids Urine, Voided 550 2 # Bowel Movements 0 0 - Medications Active Medications: Active Medications Generic Name Dose Route Start Last Admin Trade Name Freq PRN Reason Stop Dose Admin Albuterol Sulfate 1.25 mg 01/04/17 12:45 01/05/17 11:43 Albuterol 0.042% Inhal Beth[place] (1.25mg/3ml) Ud IH 1.25 mg Q3H PAMELA Administration Heparin Sodium (Porcine) 5,000 units 01/04/17 22:00 01/05/17 09:05 Heparin SC 5,000 units Q12 PAMELA Administration Protocol Ceftriaxone Sodium 2 gm in 100 mls @ 100 mls/hr 01/05/17 10:00 01/05/17 09:04 Rocephin 2 Gm Ivpb IVPB 100 mls/hr DAILY PAMELA Administration Protocol Azithromycin 500 mg in 250 mls @ 167 mls/hr 01/05/17 10:00 01/05/17 09:03 Zithromax 500mg In Ns IVPB 167 mls/hr DAILY PAMELA Administration Protocol Methylprednisolone 60 mg 01/04/17 12:45 01/05/17 09:05 Solu-Medrol IVP 60 mg Q12 PAMELA Administration Pantoprazole Sodium 40 mg 01/05/17 10:00 01/05/17 09:04 Protonix Inj IVP 40 mg DAILY PAMELA Administration - Patient Studies Lab Studies: Lab Studies 01/05/17 01/05/17 01/05/17 Range/Units 05:30 05:15 05:15 WBC 12.3 H (4.5-11.0) 10^3/ul RBC 4.64 (3.5-6.1) 10^6/uL Hgb 14.6 (14.0-18.0) gm/dL Hct 44.2 (42.0-52.0) % MCV 95.3 (80.0-105.0) fL MCH 31.5 (25.0-35.0) pg MCHC 33.0 (31.0-37.0) g/dl RDW 15.5 H (11.5-14.5) % Plt Count 142 (120.0-450.0) 10^3/uL MPV 9.0 (7.0-11.0) fl pCO2 70 H (35-45) mm/Hg pO2 76.0 L (80-100) mm/Hg HCO3 32.9 H (21-28) mmol/L ABG pH 7.28 L (7.35-7.45) ABG Total CO2 35.0 H (22-28) mmol.L ABG O2 Saturation 96.9 (95-98) % ABG O2 Content 18.5 (15-23) ML/dl ABG Base Excess 3.8 H (-2.0-3.0) mmol/L ABG Hemoglobin 14.2 (11.7-17.4) g/dL ABG Carboxyhemoglobin 3.4 H (0.5-1.5) % POC ABG HHb (Measured) 3.0 (0-5) % ABG Methemoglobin 1.1 (0.0-3.0) % ABG O2 Capacity 19.1 (16-24) mL/dl VBG pH (7.32-7.43) VBG pCO2 (40-60) VBG HCO3 (21-28) mmol/l VBG Total CO2 (22-28) mmol.L VBG O2 Sat (Calc) (40-65) % VBG Base Excess (0.0-2.0) mmol/L VBG Potassium (3.6-5.2) mmol/L Hgb O2 Saturation 92.6 L (95.0-98.0) % Sodium 135 (132-148) mmol/L Chloride 96 L (98-107) mmol/L Glucose (75-110) mg/dl Lactate (0.7-2.1) mmol/L FiO2 28.0 % Potassium 4.1 (3.6-5.0) mmol/L Carbon Dioxide 32 (21-33) mmol/L Anion Gap 11 (10-20) BUN 15 (7-21) mg/dL Creatinine 0.5 (0.5-1.4) mg/dL Est GFR ( Amer) > 60 Est GFR (Non-Af Amer) > 60 Random Glucose 127 H (70-110) mg/dL Calcium 8.3 L (8.4-10.5) mg/dL Phosphorus 3.3 (2.5-4.5) mg/dL Magnesium 2.1 (1.7-2.2) mg/dL Total Bilirubin 1.0 (0.2-1.3) mg/dL AST 23 (15-59) U/L ALT 24 (7-56) U/L Alkaline Phosphatase 49 (38-133) U/L Total Protein 6.6 (5.8-8.3) g/dL Albumin 3.4 (3.0-4.8) g/dL Globulin 3.2 gm/dL Albumin/Globulin Ratio 1.1 (1.1-1.8) Venous Blood Potassium (3.6-5.2) mmol/L 01/04/17 01/04/17 Range/Units 14:11 13:15 WBC (4.5-11.0) 10^3/ul RBC (3.5-6.1) 10^6/uL Hgb (14.0-18.0) gm/dL Hct (42.0-52.0) % MCV (80.0-105.0) fL MCH (25.0-35.0) pg MCHC (31.0-37.0) g/dl RDW (11.5-14.5) % Plt Count (120.0-450.0) 10^3/uL MPV (7.0-11.0) fl pCO2 59 H (35-45) mm/Hg pO2 26 L 66.0 L (80-100) mm/Hg HCO3 29.7 H (21-28) mmol/L ABG pH 7.31 L (7.35-7.45) ABG Total CO2 31.5 H (22-28) mmol.L ABG O2 Saturation 95.3 (95-98) % ABG O2 Content 18.2 (15-23) ML/dl ABG Base Excess 1.9 (-2.0-3.0) mmol/L ABG Hemoglobin 14.6 (11.7-17.4) g/dL ABG Carboxyhemoglobin 6.3 H (0.5-1.5) % POC ABG HHb (Measured) 4.4 (0-5) % ABG Methemoglobin 0.5 (0.0-3.0) % ABG O2 Capacity 19.1 (16-24) mL/dl VBG pH 7.20 L (7.32-7.43) VBG pCO2 79.0 H* (40-60) VBG HCO3 30.9 H (21-28) mmol/l VBG Total CO2 33.3 H (22-28) mmol.L VBG O2 Sat (Calc) 57.4 (40-65) % VBG Base Excess 0.5 (0.0-2.0) mmol/L VBG Potassium 3.9 (3.6-5.2) mmol/L Hgb O2 Saturation 88.8 L (95.0-98.0) % Sodium 133.0 (132-148) mmol/L Chloride 96.0 L (98-107) mmol/L Glucose 119 H (75-110) mg/dl Lactate 3.7 H (0.7-2.1) mmol/L FiO2 21.0 32.0 % Potassium (3.6-5.0) mmol/L Carbon Dioxide (21-33) mmol/L Anion Gap (10-20) BUN (7-21) mg/dL Creatinine (0.5-1.4) mg/dL Est GFR ( Amer) Est GFR (Non-Af Amer) Random Glucose (70-110) mg/dL Calcium (8.4-10.5) mg/dL Phosphorus (2.5-4.5) mg/dL Magnesium (1.7-2.2) mg/dL Total Bilirubin (0.2-1.3) mg/dL AST (15-59) U/L ALT (7-56) U/L Alkaline Phosphatase (38-133) U/L Total Protein (5.8-8.3) g/dL Albumin (3.0-4.8) g/dL Globulin gm/dL Albumin/Globulin Ratio (1.1-1.8) Venous Blood Potassium 3.9 (3.6-5.2) mmol/L Laboratory Results - last 24 hr 01/04/17 01/04/17 01/05/17 13:15 14:11 05:15 WBC 12.3 H RBC 4.64 Hgb 14.6 Hct 44.2 MCV 95.3 MCH 31.5 MCHC 33.0 RDW 15.5 H Plt Count 142 MPV 9.0 pCO2 59 H pO2 66.0 L 26 L HCO3 29.7 H ABG pH 7.31 L ABG Total CO2 31.5 H ABG O2 Saturation 95.3 ABG O2 Content 18.2 ABG Base Excess 1.9 ABG Hemoglobin 14.6 ABG Carboxyhemoglobin 6.3 H POC ABG HHb (Measured) 4.4 ABG Methemoglobin 0.5 ABG O2 Capacity 19.1 VBG pH 7.20 L VBG pCO2 79.0 H* VBG HCO3 30.9 H VBG Total CO2 33.3 H VBG O2 Sat (Calc) 57.4 VBG Base Excess 0.5 VBG Potassium 3.9 Hgb O2 Saturation 88.8 L Sodium 133.0 Chloride 96.0 L Glucose 119 H Lactate 3.7 H FiO2 32.0 21.0 Potassium Carbon Dioxide Anion Gap BUN Creatinine Est GFR ( Amer) Est GFR (Non-Af Amer) Random Glucose Calcium Phosphorus Magnesium Total Bilirubin AST ALT Alkaline Phosphatase Total Protein Albumin Globulin Albumin/Globulin Ratio Venous Blood Potassium 3.9 01/05/17 01/05/17 05:15 05:30 WBC RBC Hgb Hct MCV MCH MCHC RDW Plt Count MPV pCO2 70 H pO2 76.0 L HCO3 32.9 H ABG pH 7.28 L ABG Total CO2 35.0 H ABG O2 Saturation 96.9 ABG O2 Content 18.5 ABG Base Excess 3.8 H ABG Hemoglobin 14.2 ABG Carboxyhemoglobin 3.4 H POC ABG HHb (Measured) 3.0 ABG Methemoglobin 1.1 ABG O2 Capacity 19.1 VBG pH VBG pCO2 VBG HCO3 VBG Total CO2 VBG O2 Sat (Calc) VBG Base Excess VBG Potassium Hgb O2 Saturation 92.6 L Sodium 135 Chloride 96 L Glucose Lactate FiO2 28.0 Potassium 4.1 Carbon Dioxide 32 Anion Gap 11 BUN 15 Creatinine 0.5 Est GFR ( Amer) > 60 Est GFR (Non-Af Amer) > 60 Random Glucose 127 H Calcium 8.3 L Phosphorus 3.3 Magnesium 2.1 Total Bilirubin 1.0 AST 23 ALT 24 Alkaline Phosphatase 49 Total Protein 6.6 Albumin 3.4 Globulin 3.2 Albumin/Globulin Ratio 1.1 Venous Blood Potassium EKG/Cardiology Studies: Cardiology / EKG Studies 01/05/17 07:00 EKG [ELECTROCARDIOGRAM] DAILY Comment: Reason For Exam: f/u, SVT Critical Care Progress Note - Nutrition Nutrition: Nutrition Category Date Time Status Dysphagia/Modified Consistency Diet [DIET] Diets 01/04/17 Dinner Ordered Attending/Attestation - Attestation I have personally seen and examined this patient.: Yes I have fully participated in the care of the patient.: Yes I have reviewed all pertinent clinical information: Yes Notes (Text): 01/05/17 12:39 66 y/o M w/ End Stage COPD COPD cachexia 50ft walk distance. No interest in rehab or smoking cessation Continue I.V steroids BID, lung sounds improved. Treat for RLL Pna w/ ABX and cx pending. Chronic CO2 retention. Pt refused BIPAP and continues to be resting comfortably. Needs to adhere to his medications , pt is not interested in pulmonary rehab either. dvt p heparin sq tid. transfer to medical floor at this point. cc time 55 min
[2017-01-05] MEDS ORDERED: Albuterol 0.042% Inhal Sol (1.25 mg/3 mL) UD IH SCH (14:00)
--- NOTE | 2017-01-05 16:16 | CARD ---
APPROVED REPORT EXAM: Two-dimensional and M-mode echocardiogram with Doppler and color Doppler. INDICATION Dyspnea 2D DIMENSIONS Left Atrium (2D)4.0 (1.6-4.0cm)IVSd1.0 (0.7-1.1cm) LVDd3.9 (3.9-5.9cm)PWd1.0 (0.7-1.1cm) LVDs2.5 (2.5-4.0cm)FS (%) 35.2 % LVEF (%)65.2 (>50%) M-Mode DIMENSIONS Aortic Root3.20 (2.2-3.7cm)Aortic Cusp Exc.1.90 (1.5-2.0cm) Aortic Valve AoV Peak Cnsxbnkf736.0cm/Darryl Peak GR.7mmHg Mitral Valve E/A ratio0.0 TDI E/Lateral E'0.0E/Medial E'0.0 Pulmonary Valve PV Peak Fvzaazcy48.8cm/sPV Peak Grad.1mmHg Tricuspid Valve TR Peak [id number]/sRAP [id number] Peak Gr.84mmHg [id number] LEFT VENTRICLE The left ventricle is normal size. There is normal left ventricular wall thickness. The left ventricular function is normal. The left ventricular ejection fraction is within the normal range. Transmitral Doppler flow pattern is Grade I-abnormal relaxation pattern. RIGHT VENTRICLE The right ventricle is moderately dilated. There is normal right ventricular wall thickness. RV Systolic function is moderately reduced. ATRIA The left atrium size is normal. The right atrium is mildly dilated. AORTIC VALVE The aortic valve is thickened but opens well. No aortic regurgitation is present. MITRAL VALVE The mitral valve is mildly thickened. There is no mitral valve regurgitation noted. TRICUSPID VALVE There is moderate tricuspid regurgitation. There is severe pulmonary hypertension. GREAT VESSELS The aortic root is normal in size. The IVC collapses <50% with inspiration. PERICARDIAL EFFUSION There is a trace loculated anterior pericardial effusion. <Conclusion> The right ventricle is moderately dilated. RV Systolic function is moderately reduced. There is severe pulmonary hypertension. The left ventricle is normal size. There is normal left ventricular wall thickness. The left ventricular function is normal. The left ventricular ejection fraction is within the normal range. Transmitral Doppler flow pattern is Grade I-abnormal relaxation pattern.
--- NOTE | 2017-01-05 18:31 | CON ---
DATE: 01/05/2017 CARDIOLOGY CONSULTATION HISTORY OF PRESENT ILLNESS: The patient is a 66-year-old male who presents with exacerbation of COPD . He was found to have marked sinus tachycardia as well as atrial arrhythmias after administration o f bronchodilators. His workup revealed severe chronic obstructive pulmonary disease with a right lower lobe pneumonia wi th no evidence of pulmonary embolism. PAST MEDICAL HISTORY: Free of cardiac disease. No history of hypertension, no diabetes, no previous cardiac history. SOCIAL HISTORY: He is a heavy smoker. REVIEW OF SYSTEMS: Reviewed. Other than dyspnea, there were no other symptoms noted. PHYSICAL EXAMINATION: VITAL SIGNS: Blood pressure 107/66, heart rate is 92 with frequent APCs. NECK: Negative JVD. LUNGS: Without decreased breath sounds bilaterally. HEART: Revealed S1, S2. EXTREMITIES: Without edema. LABORATORIES: Hemoglobin is 14.6, white count is 12.3. Troponin is negative x 1. IMPRESSION: 1. Exacerbation of chronic obstructive pulmonary disease. 2. Marked atrial arrhythmias secondary to severe chronic obstructive pulmonary disease. 3. Sinus tachycardia secondary to bronchodilators as well as work of breathing. 4. Dyspnea. Given these findings, we will obtain an echocardiogram to rule out pulmonary hypertension. I have di scussed seriously with the patient as well as with his [id number] about his need to stop smoking. Ja Kam MD cc: [id number] TT: 01/05/2017 18:30:05 Confirmation # [id number] Dictation # [id number] adams
--- NOTE | 2017-01-05 18:49 | CARD ---
APPROVED REPORT EKG Measurement Heart [id number] <Conclusion> Normal sinus rhythm Anterior infarct, age undetermined Abnormal ECG
[2017-01-06] MEDS: Albuterol 0.042% Inhal Sol (1.25 mg/3 mL) UD IH SCH ×5 (00:20→19:34)
[2017-01-06 05:57] LABS: ARTERIAL BLOOD GAS HCO3 36.9 mmol/L (21-28); ARTERIAL BLOOD GAS O2 CONTENT 18.2 ML/dl (15-23); ARTERIAL BLOOD HGB O2 SAT 92.9 % (95.0-98.0); CARBOXYHEMOGLOBIN 1.8 % (0.5-1.5); HHB 4.2 % (0-5); METHEMOGLOBIN 1.1 % (0.0-3.0)
[2017-01-06] MEDS: Budesonide 0.5 mg/2 ml Inhal Susp UD IH SCH ×2 (07:21→19:34)
[2017-01-06 08:03] LABS: GRAN # 9.97 (1.4-6.5); GRAN % 95.2 % (50.0-68.0); HEMATOCRIT 42.6 % (42.0-52.0); LYMPH # 0.3 (1.2-3.4); LYMPH % 3.1 % (22.0-35.0); MEAN CELL VOLUME 95.9 fL (80.0-105.0); MEAN CORPUSCULAR HEMOGLOBIN 31.3 pg (25.0-35.0); MEAN CORPUSCULAR HGB CONC 32.6 g/dl (31.0-37.0); MEAN PLATELET VOLUME 9.5 fl (7.0-11.0); MONO # 0.2 (0.1-0.6); MONO % 1.7 % (1.0-6.0); PLATELET COUNT 154 10^3/uL (120.0-450.0); RED CELL DISTRIBUTION WIDTH 15.6 % (11.5-14.5); WHITE BLOOD COUNT 10.5 10^3/ul (4.5-11.0)
[2017-01-06 08:04] LABS: ADD MANUAL DIFF? NO
[2017-01-06 08:11] LABS: ALKALINE PHOSPHATASE 51 U/L (38-133); ALT/SGPT 26 U/L (7-56); AST/SGOT 21 U/L (15-59); BILIRUBIN,TOTAL 0.8 mg/dL (0.2-1.3); BLOOD UREA NITROGEN 17 mg/dL (7-21); CALCIUM 8.5 mg/dL (8.4-10.5); CARBON DIOXIDE 39 mmol/L (21-33); CHLORIDE 93 mmol/L (98-107); GFR AFRICAN-AMERICAN > 60; GLUCOSE,RANDOM 117 mg/dL (70-110); MAGNESIUM 1.9 mg/dL (1.7-2.2); PHOSPHOROUS 3.3 mg/dL (2.5-4.5); POTASSIUM 4.5 mmol/L (3.6-5.0); SODIUM 133 mmol/L (132-148); TOTAL PROTEIN 6.4 g/dL (5.8-8.3)
[2017-01-06] MEDS: Pantoprazole 40 mg Susp UD PO SCH (09:04)
--- NOTE | 2017-01-06 09:07 | PN ---
DATE: 01/06/2017 I saw him resting comfortably in room 564. He is on nasal cannula, slept fairly well. No chest pain or shortness of breath at this time at rest. He is on albuterol, heparin, Protonix, Pulmicort, Rocephin at 2 grams, Solu-Medrol at 40, Xanax and Z ithromax IV. He is also eating a little bit. PHYSICAL EXAMINATION: VITAL SIGNS: He has a 98.6 temp, 102 pulse, 28 respiratory rate, 92% O2 sat on 2 liters. HEAD: Atraumatic, normocephalic. Throat is moist. HEART: Regular rate. LUNGS: Decreased breath sounds bilaterally, poor inspiration, poor air movement secondary to his pul monary cachexia. ABDOMEN: Soft. EXTREMITIES: No edema. He is very thin and frail. LABORATORY DATA: He has a 10.5 white count, 13.9 hemoglobin, 42.6 hematocrit with 154 platelets. He has a 1.1 INR. He has a 135 sodium, potassium 4.1, BUN 15, creatinine 0.5. GFR is greater than 60. Sugar is 127. Calcium is 8.3, phosphorus 3.3, magnesium 2.1. Total bili is 1. AST is 23. ALT is 24, alk phos 49, total protein 6.6. He is being seen by pulmonary and cardiology. Chest x-ray shows no change in alveolar infiltrates, right lung base with severe COPD. He has got ex acerbation of COPD, arrhythmia secondary to severe COPD, sinus tachycardia secondary to bronchodilato rs, shortness of breath. He might need to have TCU before he goes home. He is still on IV Rocephin and IV Solu-Medrol at high dosages. We will check his labs tomorrow, and try to get him out of bed t o chair, get some physical therapy involved. Continue with aggressive treatment and care on the ariana ent. Thank you very much. Dc Das DO cc: [id number] TT: 01/06/2017 09:06:40 Confirmation # [id number] Dictation # [id number] maxi
[2017-01-06] MEDS: cefTRIAXone 2 GM IN NS 2 GM/100 ML BAG IVPB SCH (09:13)
[2017-01-06] MEDS: MethylPREDNISolone 40 mg Vial IVP SCH ×2 (09:13→22:01)
[2017-01-06] MEDS: Azithromycin 500MG/NS 250ml 500 MG/250 ML BAG IVPB SCH (09:13)
--- NOTE | 2017-01-06 09:44 | PN ---
DATE: 01/06/2017 SUBJECTIVE: The patient appears comfortable at the present time. He is mildly short of breath, but in no acute distress. PHYSICAL EXAMINATION: VITAL SIGNS: Temperature is 98.6, pulse at present is approximately 88, respiratory rate 20/22, last blood pressure recorded 104/71. Oxygen saturation on nasal cannula is 92-93%. HEENT: Normocephalic, atraumatic. No JVD. CARDIOVASCULAR: Positive S1, S2. No S3. LUNGS: Decreased breath sounds at the bases. Less rhonchi. No wheezing this morning. EXTREMITIES: No clubbing, cyanosis, or edema. Calves are nontender to palpation. GASTROINTESTINAL: Abdomen is soft, nontender, nondistended. Bowel sounds are positive. SKIN: No acute rash. NEUROLOGIC: Limited at the present time. IMPRESSION: 1. Acute bronchitis. 2. Advanced chronic obstructive pulmonary disease. 3. Respiratory insufficiency. 4. Right lower lobe pneumonia. 5. Cardiac arrhythmias. PLAN: The patient appears comfortable this morning. He is awake and alert. He is mildly short of breath, but in no acute distress. I did discuss the case with the night nurse at length. The night nurse stated that the patient had a good night. He did wear the BiPAP for approximately 6 hours. On physical exam , his bronchospasm is certainly less. I will continue with the current nebulizer treatments and decrease the intravenous steroids this morning. I would continue with the current antibiotic therapy for now. Cultures are so far negative. The leukocytosis is resolving. Repeat a.m. labs are pending. Arterial blood gas is also pending - not done yet. Clinical status of the patient is certainly improved - compared to the initial presentation. However, the overall status/prognosis for this patient-- with advanced chronic obstructive pulmonary disease and pulmonary cachexia - remains very guarded. Additional pulmonary intervention will be based on the above results. and the clinical status of the patient. I will discuss the above with Dr. Das. Mic Emerson MD cc: [id number] TT: 01/06/2017 09:44:02 Confirmation # [id number] Dictation # [id number] maurice OSORIO
--- NOTE | 2017-01-06 10:12 | RAD ---
HISTORY: f/u COMPARISON: 01/05/2017 FINDINGS: LUNGS: There is a slight increase in the extent of the right lower lobe pneumonia. PLEURA: No significant pleural effusion identified, no pneumothorax apparent. CARDIOVASCULAR: Normal. OSSEOUS STRUCTURES: No significant abnormalities. VISUALIZED UPPER ABDOMEN: Normal. OTHER FINDINGS: None. IMPRESSION: Slight increase in the extent of the right lower lobe pneumonia
--- NOTE | 2017-01-06 10:35 | PN ---
DATE: 01/06/2017 The patient is in bed. His breathing is improved. PHYSICAL EXAMINATION: VITAL SIGNS: Blood pressure 109/80. The heart rate is in the 90s. NECK: Negative JVD. LUNGS: Decreased breath sounds bilaterally. HEART: Reveals S1, S2. EXTREMITIES: Without edema. LABORATORY DATA: Hemoglobin is 13.9, white count is down to 10.5. BUN and creatinine are unremarkab le. The echocardiogram reveals preserved LV function with an ejection fraction of 65%. There is severe p ulmonary hypertension. IMPRESSION: 1. Exacerbation of chronic obstructive pulmonary disease. 2. Severe pulmonary hypertension. 3. Right lower lobe pneumonia. 4. Dyspnea, which is better. Given these findings, I have discussed with the patient and family about his poor prognosis given his documented pulmonary hypertension. Will discuss with pulmonary about the pros and cons of placing h im on medications for his pulmonary hypertension. Ja Kam MD cc: [id number] TT: 01/06/2017 10:34:32 Confirmation # [id number] Dictation # [id number] adams
[2017-01-07] MEDS: Albuterol 0.042% Inhal Sol (1.25 mg/3 mL) UD IH SCH ×7 (00:59→23:15)
[2017-01-07 07:00] LABS: ADD MANUAL DIFF? NO
[2017-01-07 07:10] LABS: GRAN # 7.09 (1.4-6.5); HEMATOCRIT 42.9 % (42.0-52.0); LYMPH # 0.3 (1.2-3.4); LYMPH % 4.5 % (22.0-35.0); MEAN CELL VOLUME 95.3 fL (80.0-105.0); MEAN CORPUSCULAR HEMOGLOBIN 31.8 pg (25.0-35.0); MEAN CORPUSCULAR HGB CONC 33.3 g/dl (31.0-37.0); MEAN PLATELET VOLUME 9.5 fl (7.0-11.0); MONO # 0.2 (0.1-0.6); MONO % 2.5 % (1.0-6.0); PLATELET COUNT 182 10^3/uL (120.0-450.0); RED CELL DISTRIBUTION WIDTH 15.5 % (11.5-14.5); WHITE BLOOD COUNT 7.6 10^3/ul (4.5-11.0)
[2017-01-07] MEDS: Budesonide 0.5 mg/2 ml Inhal Susp UD IH SCH ×2 (07:13→21:01)
[2017-01-07 07:38] LABS: ALKALINE PHOSPHATASE 58 U/L (38-133); ALT/SGPT 28 U/L (7-56); AST/SGOT 29 U/L (15-59); BILIRUBIN,TOTAL 0.7 mg/dL (0.2-1.3); BLOOD UREA NITROGEN 20 mg/dL (7-21); CALCIUM 8.7 mg/dL (8.4-10.5); CARBON DIOXIDE 37 mmol/L (21-33); CHLORIDE 91 mmol/L (95-110); GFR AFRICAN-AMERICAN > 60; GLUCOSE,RANDOM 109 mg/dL (70-110); MAGNESIUM 1.8 mg/dL (1.7-2.2); PHOSPHOROUS 3.7 mg/dL (2.5-4.5); POTASSIUM 4.7 mmol/L (3.6-5.0); SODIUM 131 mmol/L (132-148); TOTAL PROTEIN 6.3 g/dL (5.8-8.3)
[2017-01-07] MEDS: Pantoprazole 40 mg Susp UD PO SCH (07:38)
--- NOTE | 2017-01-07 08:09 | PN ---
DATE: 01/07/2017 SUBJECTIVE: The patient appears comfortable this morning. He is not short of breath at rest. PHYSICAL EXAMINATION: VITAL SIGNS: Temperature is 98.7, pulse 88, respiratory rate 20, blood pressure 104/73. Oxygen saturation on nasal cannula is 94%. HEENT: Normocephalic, atraumatic. No JVD. CARDIOVASCULAR: Positive S1, S2. No S3. LUNGS: Decreased breath sounds at the bases. Less rhonchi. No wheezing. EXTREMITIES: No clubbing, cyanosis, or edema. Calves are nontender to palpation. GASTROINTESTINAL: Abdomen is soft, nontender, nondistended. Bowel sounds are positive. SKIN: No acute rash. NEUROLOGIC: Limited at the present time. IMPRESSION: 1. Acute bronchitis. 2. Advanced chronic obstructive pulmonary disease. 3. Respiratory insufficiency. 4. Right lower lobe pneumonia. 5. Cardiac arrhythmias. PLAN: The patient appears more comfortable this morning. He is awake and alert. He is not short of breath this morning. He states he is feeling much better overall. I did discuss the case with the night nurse at length. The night nurse stated that the patient had a good night, and wore the BiPAP for approximately 6 hours. On physical exam, there is less bronchospasm noted. In addition, the alveolar-arterial gradient is also less. I will continue with the current nebulizer treatments and current intravenous steroids (decreased yesterday) for now. The patient remains on antibiotic therapy. His temperatures have resolved. The leukocytosis has also resolved. Cultures remain negative at this point in time. Repeat chest x-ray and arterial blood gas are ordered. I will check them when feasible. Both are not done as of yet. The clinical status of this patient is certainly improved -- compared to the initial presentation. However, again, the overall status/prognosis for this patient with end-stage chronic obstructive pulmonary disease and pulmonary cachexia -- remains very guarded at best. All are aware. Consultation with Jayla Murphy (palliative care) has been ordered. The patient is for probable transfer to the transitional unit in the near future. I will discuss the above with Dr. Das this morning. Mic Emerson MD cc: [id number] TT: 01/07/2017 08:08:22 Confirmation # [id number] Dictation # [id number] en [email or web address]
[2017-01-07] MEDS: cefTRIAXone 2 GM IN NS 2 GM/100 ML BAG IVPB SCH (09:49)
[2017-01-07] MEDS: MethylPREDNISolone 40 mg Vial IVP SCH ×2 (09:49→22:54)
[2017-01-07] MEDS: Azithromycin 500MG/NS 250ml 500 MG/250 ML BAG IVPB SCH (10:13)
--- NOTE | 2017-01-07 12:20 | RAD ---
HISTORY: f/u COMPARISON: 01/06/2017. FINDINGS: LUNGS: There is redemonstration of right lower lobe consolidation without significant interval change. The lungs are hyperinflated and there is peribronchial thickening with chronic changes in both lungs. PLEURA: No significant pleural effusion identified, no pneumothorax apparent. CARDIOVASCULAR: Normal. OSSEOUS STRUCTURES: No significant abnormalities. VISUALIZED UPPER ABDOMEN: Normal. OTHER FINDINGS: None. IMPRESSION: Right lower lobe pneumonia. COPD. Follow-up to resolution is advised.
[2017-01-07] MEDS: Sodium Chloride 0.9% 1,000 ML IV SCH (12:59)
--- NOTE | 2017-01-07 13:12 | PN ---
DATE: 01/07/2017 The patient's breathing is comfortable at rest. PHYSICAL EXAMINATION: VITAL SIGNS: Blood pressure is 122/85. The heart rate is in the 80s. NECK: Negative JVD. LUNGS: Decreased breath sounds bilaterally. HEART: Reveals S1, S2. EXTREMITIES: Without edema. The hemoglobin is 14.3. Chemistries are unremarkable and unchanged from yesterday. IMPRESSION: 1. Severe chronic obstructive pulmonary disease. 2. Severe pulmonary hypertension. 3. Dyspnea, which has improved. 4. Right lower lobe pneumonia. 5. Coronary artery disease. Given these findings, we will let the patient recover from his exacerbation of chronic obstructive pu lmonary disease. The patient is being transferred to the TCU. At some, after recovery, the patient should undergo a stress test to rule out significant coronary artery disease. Ja Kam MD cc: [id number] TT: 01/07/2017 13:11:01 Confirmation # [id number] Dictation # [id number] en
--- NOTE | 2017-01-07 14:02 | DS ---
Hopefully going to the TCU for further lung care and physical therapy. I see him resting in bed. He is more alert. He is getting a little bit stronger. He is comfortable. He has got multiple issues going on, COPD, right lower lobe pneumonia, bronchitis, SVT. He really wants breathing treatments when he goes home he likes them. PHYSICAL EXAMINATION: VITAL SIGNS: He has a 97.9 temp, 88 pulse, 122/85 blood pressure, 20 respiratory rate, 95% O2 sat on 35% oxygen. HEENT: Head is atraumatic, normocephalic. Throat is moist. NECK: Supple. HEART: Regular rate. LUNGS: Decreased breath sounds bilaterally but much clearer. ABDOMEN: Soft. EXTREMITIES: No edema. He is very weak. MEDICATIONS: He is currently on albuterol nebulizers, heparin, Protonix, Pulmicort, Rocephin, Solu-Medrol, Xanax, azithromycin. LABORATORY DATA: He has a 7.6 white count, 14.3 hemoglobin, 42.9 hematocrit with 182 platelets. He has a 131 sodium, potassium 4.7, BUN is 20, creatinine 0.4, GFR is greater than 60, sugar is 109, calcium 8.7, phosphorus 3.7, magnesium 1.8, total bili is 0.7, AST is 29, ALT is 20, alkaline phosphatase 58 , total protein 6.3. He is being seen by pulmonary, cardiology. I am hoping to get him to TCU today for further antibiotics, IV Solu-Medrol and physical therapy. They will not be able to tell me until later otherwise continue treatment and care and the last chest x-ray showed worsening of the right lower lobe pneumonia yesterday. We will continue aggressive treatment and care pulmonology. Will check his labs tomorrow. Dc Das DO cc: [id number] TT: 01/07/2017 14:01:45 jn MTDD
[2017-01-08] MEDS: Albuterol 0.042% Inhal Sol (1.25 mg/3 mL) UD IH SCH ×6 (04:40→23:20)
[2017-01-08] MEDS: Budesonide 0.5 mg/2 ml Inhal Susp UD IH SCH ×2 (07:29→20:01)
[2017-01-08] MEDS: Pantoprazole 40 mg Susp UD PO SCH (08:35)
--- NOTE | 2017-01-08 09:56 | PN ---
DATE: 01/08/2017 I saw him resting comfortably in bed. He slept fairly well. He has got oxygen on. He is refusing h is labs right now. He still is short of breath at times, but better. He understands the plan, that he needs to be on the antibiotics and the medicine a little bit longer as per pulmonary. I tried to get him to TCU yesterday. They had no beds. They say they will have beds tomorrow. PHYSICAL EXAMINATION: VITAL SIGNS: He has a 98.4 temp, 86 pulse, 133/96 blood pressure, I will put him on blood pressure m edications. His respiratory rate is 20. He has a 97% O2 sat on 35% oxygen. HEENT: His head is atraumatic, normocephalic. The throat is dry. NECK: Supple. HEART: Regular rate. LUNGS: Decreased breath sounds with wheezes, changes with cough. ABDOMEN: Soft. EXTREMITIES: No edema. He is eating well. MEDICATIONS: He is currently on albuterol, heparin, Protonix, Pulmicort, Rocephin 2 grams IV, IV flu ids, Solu-Medrol down to 40. We will see if pulmonary will drop that to 30 today. Xanax, Zithromax IV. I am going to add Norvasc 2.5 mg for his blood pressure. I encouraged him to get out of bed to chair , eat well. Tomorrow, I plan on getting him to TCU for further IV antibiotics, Solu-Medrol weaning a nd physical therapy. He has got severe pulmonary disease, severe chronic obstructive pulmonary disea se, right lower lobe pneumonia, acute bronchitis. He had supraventricular tachycardia, pulmonary hyp ertension, coronary artery disease and now he has got hypertension. We will see how he does tomorrow . Hopefully, he will let us do blood tests tomorrow. He refused it today. Dc Das DO cc: [id number] TT: 01/08/2017 09:55:30 Confirmation # [id number] Dictation # [id number] tn
--- NOTE | 2017-01-08 10:16 | PN ---
DATE: 01/08/2017 PULMONARY PROGRESS NOTE Room 573, bed 1. SUBJECTIVE: The patient states he is comfortable without any respiratory distress. He does not look short of breath. It is my understanding that the patient had a pCO2 of 75 yesterday with respirator y insufficiency. The prior night the patient did not use his BiPAP, but last night he did use his BiPAP. He feels wel l this morning. The patient absolutely refuses to have any blood work or blood gas taken this talon guevara. I have discussed this with him in Danish, his language. He still wishes not had any further blo od gas tests or other blood work. PHYSICAL EXAMINATION: GENERAL: The patient looks comfortable, in no acute respiratory distress. Lying flat in bed. VITAL SIGNS: Show afebrile male 98.7, pulse is 84, respiratory rate 16, blood pressure 110/ 70, O2 saturation is 94% on nasal cannula. HEENT: Normocephalic, atraumatic. NECK: Supple, no JVD, no lymphadenopathy, no bruit, no mass, no thyromegaly. CARDIOVASCULAR: Regular rhythm, S1, S2. There is no gallop, rub or murmur. LUNGS: Chest reveals decreased breath sounds throughout, but there is no rhonchi, rales or wheezing this a.m. GASTROINTESTINAL: Soft. Bowel sounds normoactive without mass, guarding, rebound or organomegaly. EXTREMITIES: Reveal no clubbing, cyanosis or edema. There is no Homans sign. SKIN: No rash or excoriation. NEUROLOGIC: Mental status is fine. The patient is awake and alert, oriented. Motor, sensory and co ordination are normal. Deep tendon reflexes normal. Babinski is downgoing. LABORATORY DATA: Chest x-ray shows residual pneumonic infiltrate, slightly improved from before. CLINICAL IMPRESSION: 1. Bronchopneumonia. 2. Respiratory insufficiency -- resolved. 3. History of cardiac arrhythmias. PLAN: Continue antibiotics. Continue BiPAP at night or when sleeping. The patient apparently needs this device to help with his daytime CO2 retention. He will need very vigorous bronchodilator medic ations for both asthma and emphysema. IV steroids as required. We will need to follow him closely. The x-ray must be followed to complete resolution. He does have other abnormalities and I am concerned that there may be an underlying neoplasm. Once completed, a CT of the chest after hopeful resolution of the pneumonic infiltrate should be done to rule out under lying carcinoma. All of this cachexia may also be related to severe chronic obstructive pulmonary di sease in time. Cesar Joseph MD cc: [id number] TT: 01/08/2017 10:16:20 Confirmation # [id number] Dictation # [id number] jn
[2017-01-08] MEDS: cefTRIAXone 2 GM IN NS 2 GM/100 ML BAG IVPB SCH (10:37)
[2017-01-08] MEDS: MethylPREDNISolone 40 mg Vial IVP SCH ×2 (10:38→21:17)
[2017-01-08] MEDS: Azithromycin 500MG/NS 250ml 500 MG/250 ML BAG IVPB SCH (12:19)
[2017-01-08] MEDS: Sodium Chloride 0.9% 1,000 ML IV SCH ×2 (12:20→22:50)
[2017-01-09] MEDS: Albuterol 0.042% Inhal Sol (1.25 mg/3 mL) UD IH SCH ×3 (04:41→11:12)
[2017-01-09] MEDS: Budesonide 0.5 mg/2 ml Inhal Susp UD IH SCH (07:16)
[2017-01-09 07:50] VITALS: PULSE 82; RESP 20; TEMP 97.6; O2SAT 96
[2017-01-09 08:56] LABS: ALB/GLOB RATIO 1.1 (1.1-1.8); ALKALINE PHOSPHATASE 51 U/L (38-133); ALT/SGPT 55 U/L (7-56); AST/SGOT 29 U/L (15-59); BILIRUBIN,TOTAL 0.7 mg/dL (0.2-1.3); BLOOD UREA NITROGEN 20 mg/dL (7-21); CALCIUM 8.7 mg/dL (8.4-10.5); CARBON DIOXIDE 37 mmol/L (21-33); CHLORIDE 89 mmol/L (95-110); GFR AFRICAN-AMERICAN > 60; GLUCOSE,RANDOM 99 mg/dL (70-110); POTASSIUM 4.4 mmol/L (3.6-5.0); SODIUM 131 mmol/L (132-148); TOTAL PROTEIN 6.4 g/dL (5.8-8.3)
[2017-01-09] MEDS: Pantoprazole 40 mg Susp UD PO SCH (09:06)
[2017-01-09] MEDS: MethylPREDNISolone 40 mg Vial IVP SCH (09:06)
[2017-01-09] MEDS: cefTRIAXone 2 GM IN NS 2 GM/100 ML BAG IVPB SCH (09:06)
[2017-01-09 09:15] VITALS: BP 110/75
[2017-01-09 09:40] LABS: HEMATOCRIT 44.8 % (42.0-52.0); MEAN CELL VOLUME 93.7 fL (80.0-105.0); MEAN CORPUSCULAR HEMOGLOBIN 31.8 pg (25.0-35.0); MEAN CORPUSCULAR HGB CONC 33.9 g/dl (31.0-37.0); MEAN PLATELET VOLUME 9.3 fl (7.0-11.0); RED CELL DISTRIBUTION WIDTH 15.1 % (11.5-14.5)
[2017-01-09] MEDS: Azithromycin 500MG/NS 250ml 500 MG/250 ML BAG IVPB SCH (10:42)
--- NOTE | 2017-01-09 11:45 | PN ---
DATE: 01/09/2017 PULMONARY PROGRESS NOTE SUBJECTIVE: The patient is doing much better today. He claims to be comfortable without significant respiratory distress. He is doing physical therapy and has some dyspnea on exertion. Overall, he s tates that he is improved. As stated yesterday, he continues to refuse followup arterial blood gas, so we have no idea what his pCO2 is at the present time. His O2 sat is stable. He appears comfortab le. He is not suffering from CO2 narcosis. He is awake and alert and oriented and able to carry out complete conversations in Grenadian. He continues to use his BiPAP at night. PHYSICAL EXAMINATION: GENERAL: The patient looks generally comfortable, lying in bed. I do not see him walking around thi s morning. VITAL SIGNS: Stable, he is afebrile. Temperature is 98.6, pulse is 84, respiratory rate 16, blood p ressure 112/74, O2 sat 94% on nasal cannula. HEENT: Unchanged. NECK: Supple. No JVD. No bruit or mass. CARDIOVASCULAR: Regular rhythm, S1, S2. There is no murmur, gallop or rub. LUNGS: Continue to reveal decreased breath sounds throughout with a prolonged expiratory phase. The re is increased AP diameter, but no rales, rhonchi or wheezing are palpated. There is significant hy perresonance. GASTROINTESTINAL: Abdomen is soft. Bowel sounds normoactive without mass, guarding or rebound. EXTREMITIES: Reveal no clubbing, cyanosis or edema. SKIN: Unchanged. NEUROLOGIC: Status as described above. LABORATORY STUDIES: No new tests are available at this time. CLINICAL IMPRESSION: 1. Bronchopneumonia. 2. Respiratory insufficiency -- resolved. 3. Cardiac arrhythmia. 4. Baseline underlying chronic obstructive pulmonary disease (likely severe). PLAN: The patient needs to continue the BiPAP at night. We would like to try to convince him to get a daytime blood gas so that we can check his pCO2. His oxygen saturations are stable. He will need a complete pulmonary function study and he will need outpatient medications including LABAs, Kenneth, and inhaled corticosteroids. His status will be determined based on the pulmonary function study and we will follow him as an outpatient as requested. Thank you for the opportunity to evaluate this domi gentleman. Cesar Joseph MD cc: [id number] TT: 01/09/2017 11:45:21 Confirmation # [id number] Dictation # [id number] en
[2017-01-09] MEDS: Sodium Chloride 0.9% 1,000 ML IV SCH (13:19)
--- NOTE | 2017-01-09 14:47 | DS ---
I saw him resting comfortably in bed. He is in good spirits. I do think has improved since he has b een in the hospital, and he is not smoking while he is here. He is going to be transferred to the [facility] today for further treatment and physical therapy. MEDICATIONS: He is on albuterol, heparin, amlodipine, Protonix, Pulmicort, Rocephin 2 grams IV daily , IV fluids, Solu-Medrol at 40 IV b.i.d. I am not sure if I should decrease it or not. 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 I will drop him down to 30 mg twice a day. Xanax, azithromycin IV. PHYSICAL EXAMINATION: VITAL SIGNS: 97.6 temp, 82 pulse, 110/75 blood pressure, 20 respiratory rate, 96% O2 sat on 2 liters nasal cannula. He is alert, is comfortable, smiling, feeling better, moving better in bed. HEENT: Head is atraumatic, normocephalic. Throat is moist. NECK: Supple. HEART: Regular rate. LUNGS: Have decreased breath sounds bilaterally, poor inspiration. He has got very bad lungs from a ll the smoking he has been doing. He is thin and frail. ABDOMEN: Soft, nontender, positive bowel sounds. EXTREMITIES: Have no edema. LABORATORY DATA: He has a 4 white count, 15.2 hemoglobin, 44.8 hematocrit with 186 platelets. He houser s a 131 sodium. I will continue the IV 0.9 at the TCU. He has got a BUN of 20, creatinine 0.5, GFR is greater than 60, sugar is 99, calcium is 8.7, AST is 29, ALT is 55, alkaline phosphatase 51, total protein 6.4. He is being seen by pulmonary and cardio. He is definitely improved. We will continue with aggressi ve treatment and pulmonary care. He needs more IV antibiotics. I will decrease the Solu-Medrol to 3 0 twice a day. He needs physical therapy. He is not allowed to smoke anymore. He understands that. Continue the treatment, meds, BiPAP at nighttime, physical therapy. Dc Das DO cc: [id number] TT: 01/09/2017 14:45:53 [facility] # [id number] mn
[2017-01-09] MEDS ORDERED: MethylPREDNISolone 40 mg Vial IVP SCH (22:00)
== END 2017-01-09 13:38 | DRG 190 ==
LOC: ED 10:05 → ERH 11:40 → CCU 13:17 → 5RSO 01-05 20:06
PROVIDERS: ADMIT Family Medicine; ATTEND Family Medicine
PROC: 5A09357 Assistance with Respiratory Ventilation, Less than 24 Consecutive Hours, Continuous Positive Airway Pressure (ICD-10-PCS; principal; 2017-01-04)
PROC: 5A09457 Assistance with Respiratory Ventilation, 24-96 Consecutive Hours, Continuous Positive Airway Pressure (ICD-10-PCS; 2017-01-06)
DX: J44.1 Chronic obstructive pulmonary disease with (acute) exacerbation (principal); J44.0 Chronic obstructive pulmonary disease with (acute) lower respiratory infection; J18.0 Bronchopneumonia, unspecified organism; J96.00 Acute respiratory failure, unspecified whether with hypoxia or hypercapnia; I47.1 Supraventricular tachycardia; R64 Cachexia; Z68.1 Body mass index [BMI] 19.9 or less, adult; I27.2 Other secondary pulmonary hypertension; J20.9 Acute bronchitis, unspecified; I25.10 Atherosclerotic heart disease of native coronary artery without angina pectoris; I10 Essential (primary) hypertension; F17.200 Nicotine dependence, unspecified, uncomplicated

== ENCOUNTER 2017-01-09 13:38 | Inpatient (IN) | payer OTHER, BC ==
[2017-01-09 15:01] VITALS: BMI 16.6
[2017-01-09] MEDS: Albuterol 0.042% Inhal Sol (1.25 mg/3 mL) UD IH SCH ×2 (16:00→19:00)
[2017-01-09] MEDS: Sodium Chloride 0.9% 1,000 ML IV SCH (16:25)
[2017-01-09] MEDS: Budesonide 0.5 mg/2 ml Inhal Susp UD IH SCH (19:00)
[2017-01-09] MEDS ORDERED: MethylPREDNISolone 40 mg Vial IVP SCH (22:00)
[2017-01-10] MEDS: Albuterol 0.042% Inhal Sol (1.25 mg/3 mL) UD IH SCH ×7 (00:10→23:55)
[2017-01-10] MEDS: cefTRIAXone 2 GM IN NS 2 GM/100 ML BAG IVPB SCH (05:21)
[2017-01-10] MEDS ORDERED: Azithromycin 500MG/NS 250ml 500 MG/250 ML BAG IVPB SCH ×2 (06:00→10:00)
[2017-01-10] MEDS ORDERED: MethylPREDNISolone 40 mg Vial IVP SCH (06:00)
[2017-01-10 06:44] LABS: ADD MANUAL DIFF? NO
[2017-01-10 07:15] LABS: ALKALINE PHOSPHATASE 47 U/L (38-133); ALT/SGPT 58 U/L (7-56); AST/SGOT 27 U/L (15-59); BILIRUBIN,TOTAL 0.9 mg/dL (0.2-1.3); BLOOD UREA NITROGEN 22 mg/dL (7-21); CALCIUM 8.6 mg/dL (8.4-10.5); CARBON DIOXIDE 35 mmol/L (21-33); CHLORIDE 90 mmol/L (98-107); GFR AFRICAN-AMERICAN > 60; GLUCOSE,RANDOM 111 mg/dL (70-110); POTASSIUM 4.8 mmol/L (3.6-5.0); SODIUM 131 mmol/L (132-148); TOTAL PROTEIN 6.3 g/dL (5.8-8.3)
[2017-01-10 07:17] LABS: GRAN # 4.41 (1.4-6.5); GRAN % 83.3 % (50.0-68.0); HEMATOCRIT 43.4 % (42.0-52.0); LYMPH # 0.4 (1.2-3.4); LYMPH % 7.8 % (22.0-35.0); MEAN CELL VOLUME 92.5 fL (80.0-105.0); MEAN CORPUSCULAR HEMOGLOBIN 31.1 pg (25.0-35.0); MEAN CORPUSCULAR HGB CONC 33.6 g/dl (31.0-37.0); MONO # 0.5 (0.1-0.6); MONO % 8.9 % (1.0-6.0); PLATELET COUNT 197 10^3/uL (120.0-450.0); RED CELL DISTRIBUTION WIDTH 15.2 % (11.5-14.5); WHITE BLOOD COUNT 5.3 10^3/ul (4.5-11.0)
[2017-01-10] MEDS: Budesonide 0.5 mg/2 ml Inhal Susp UD IH SCH ×2 (07:21→20:04)
--- NOTE | 2017-01-10 09:39 | PN ---
DATE: 01/10/2017 PULMONARY NOTE SUBJECTIVE: The patient appears comfortable this morning. He is not short of breath at rest. PHYSICAL EXAMINATION: VITAL SIGNS: (Last listed in the computer): Temperature is 97.6. Pulse this morning is approximately 88, respiratory rate 18, blood pressure 110/75. Oxygen saturation on nasal cannula is 96%. HEENT: Normocephalic, atraumatic. No JVD. CARDIOVASCULAR: Positive S1, S2. No S3. LUNGS: Improved breath sounds at the bases. Minimal/less rhonchi. No wheezing. EXTREMITIES: No clubbing, cyanosis, or edema. Calves are nontender to palpation. GASTROINTESTINAL: Abdomen is soft, nontender, nondistended. Bowel sounds are positive. SKIN: No acute rash. NEUROLOGIC: Limited at the present time. IMPRESSION: 1. Acute bronchitis. 2. Advanced chronic obstructive pulmonary disease. 3. Respiratory insufficiency. 4. Right lower lobe pneumonia. 5. Cardiac arrhythmias. PLAN: The patient appears very comfortable this morning. He is not short of breath at rest. He states he is feeling much better overall. I did discuss the case with the nurse at length. The nurse stated that the patient does wear his BiPAP at night. On physical exam, there is certainly less bronchospasm noted. I will continue with the current nebulizer treatments and low-dose intravenous steroids (decreased earlier) for now. I will also continue with the current antibiotic therapy. There are no temperatures noted. The leukocytosis has resolved. Clinical status of the patient is significantly improved - compared to the initial presentation. However, again, the overall status/prognosis for this patient with advanced chronic obstructive pulmonary disease, and pulmonary cachexia - remains very guarded. I will discuss the above with Dr. Das. Mic Emerson MD cc: [id number] TT: 01/10/2017 09:38:23 Confirmation # [id number] Dictation # [id number] jn JO
[2017-01-10] MEDS ORDERED: cefTRIAXone 2 GM IN NS 2 GM/100 ML BAG IVPB SCH (10:00)
[2017-01-10] MEDS ORDERED: Pantoprazole 40 mg Susp UD PO SCH (10:00)
--- NOTE | 2017-01-10 10:59 | HP ---
He was transferred yesterday to the transitional care unit from the hospital side. He is a 66-year-old man who was brought to the Emergency Room with shortness of breath, status post nebulizer treatments, heart rate up to the 200s. It is now down to 140 in the Emergency Room. He is in SVT with shortness of breath. We believe the nebulizer treatments made his heart rate go up. He gets brought in, was given multiple antibiotics and treatment for the lungs. PAST MEDICAL HISTORY: COPD, emphysema, occasional alcohol, definitely is a smoker, no substance abuse and on IV antibiotics and IV Solu-Medrol. FAMILY HISTORY: No known. He still smokes a half a pack a day. He was put back on his medications. ALLERGIES: He has no known drug allergies. REVIEW OF SYSTEMS: No acute vision changes or hearing changes, no sore throat, no headache, no dizziness, no chest pain, no palpitations. He is short of breath, but not as bad as when he came in. He is doing better since he has not been smoking in the hospital. He is still coughing up some phlegm. PHYSICAL EXAMINATION: ABDOMEN: Soft, nontender, positive bowel sounds. EXTREMITIES: Have no edema. NEUROLOGIC: He can move all 4 extremities. His GCS is 15. Cranial nerves are intact. He is alert and oriented x 3. SKIN: Warm and dry. LYMPHATIC: Thyroid midline. No palpable appreciative lymphadenopathy. So now he is on the transitional care unit. He is currently on albuterol, heparin, Norvasc, Protonix, Pulmicort, Rocephin, IV fluids, Solu-Medrol, Xanax, Rocephin. He has a 5.3 white count, 14.6 hemoglobin, 43.4 hematocrit with 197 platelets. Sodium 131 on IV 0.9, potassium 4.8, BUN 22, creatinine 0.5, GFR is greater than 60, sugar is 111, calcium is 8.6, total bili is 0.9, AST is 27, ALT is 58, alk phos 47, total protein 6.3. He will be seen by pulmonary, cardio and infectious disease. He will continue with his medications, physical therapy, IV Solu-Medrol, IV antibiotics. We will check his labs tomorrow. He will get physical therapy. Hopefully, he will get stronger. He knows he is not allowed to smoke cigarettes anymore and we will continue with aggressive treatment and care on the patient with physical therapy and occupational therapy. He has multiple issues, chronic obstructive pulmonary disease, right lower lobe pneumonia acute bronchitis, supraventricular tachycardia, coronary artery disease and hypertension . Dc Das DO cc: [id number] TT: 01/10/2017 10:58:12 en MTDD
[2017-01-10] MEDS: MethylPREDNISolone 40 mg Vial IVP SCH (17:29)
[2017-01-10] MEDS: Sodium Chloride 0.9% 1,000 ML IV SCH (21:26)
[2017-01-11] MEDS: cefTRIAXone 2 GM IN NS 2 GM/100 ML BAG IVPB SCH (05:37)
[2017-01-11] MEDS: MethylPREDNISolone 40 mg Vial IVP SCH ×2 (05:38→18:36)
[2017-01-11] MEDS: Pantoprazole 40 mg Susp UD PO SCH (05:42)
[2017-01-11 07:13] LABS: HEMATOCRIT 43.7 % (42.0-52.0); MEAN CELL VOLUME 93.8 fL (80.0-105.0); MEAN CORPUSCULAR HEMOGLOBIN 31.3 pg (25.0-35.0); MEAN CORPUSCULAR HGB CONC 33.4 g/dl (31.0-37.0); MEAN PLATELET VOLUME 9.4 fl (7.0-11.0); WHITE BLOOD COUNT 5.1 10^3/ul (4.5-11.0)
[2017-01-11 07:25] LABS: ALB/GLOB RATIO 1.1 (1.1-1.8); ALKALINE PHOSPHATASE 42 U/L (38-133); ALT/SGPT 57 U/L (7-56); AST/SGOT 29 U/L (15-59); BILIRUBIN,TOTAL 0.8 mg/dL (0.2-1.3); BLOOD UREA NITROGEN 23 mg/dL (7-21); CALCIUM 8.2 mg/dL (8.4-10.5); CARBON DIOXIDE 36 mmol/L (21-33); CHLORIDE 88 mmol/L (95-110); GFR AFRICAN-AMERICAN > 60; GLUCOSE,RANDOM 82 mg/dL (70-110); POTASSIUM 4.6 mmol/L (3.6-5.0); SODIUM 129 mmol/L (132-148)
[2017-01-11] MEDS: Budesonide 0.5 mg/2 ml Inhal Susp UD IH SCH ×2 (07:30→19:22)
[2017-01-11] MEDS: Albuterol 0.042% Inhal Sol (1.25 mg/3 mL) UD IH SCH ×4 (07:30→19:22)
--- NOTE | 2017-01-11 08:15 | CON ---
DATE: 01/10/2017 The patient was seen in room 316. CHIEF COMPLAINT: Weakness times several days. HISTORY OF PRESENT ILLNESS: This is a 66-year-old male seen in the transitional care in room 316. I nfectious disease consultation requested. The patient was in acute care. I did not see the patient in acute care. The patient has advanced chronic obstructive lung disease, an extensive smoking histo ry and still continues to smoke, who was admitted and was treated in the acute care and infectious di sease consultation requested in the transitional care for antibiotic treatment. REVIEW OF SYSTEMS: Reveals he had low grade fever. There is a mild cough. There is mild shortness of breath. No abdominal pain, diarrhea or constipation. No headaches, no blurred vision. No nausea and vomiting. PAST MEDICAL HISTORY: Is significant for advanced chronic obstructive lung disease, severe pulmonary hypertension and coronary artery disease. PAST SURGICAL HISTORY: Noncontributory. MEDICATIONS: Are reviewed and the patient at home was on inhalers. PHYSICAL EXAMINATION: VITAL SIGNS: The patient is in bed with a temperature of 97, heart rate of 93, respiratory rate of 2 0 and blood pressure is 112/70. HEENT: Unremarkable. NECK: Supple. LUNGS: Have decreased breath sounds. HEART: Normal S1, S2. ABDOMEN: Soft, nontender. LABORATORY EXAMINATION: Reveals the patient's white count of 5.3 and hemoglobin of 14, platelets of 197. BUN of 22, creatinine of 0.5. Blood gases are noted. Microbiology reveals the blood cultures are no growth. Nasal MRSA is not detected. The chemistries also reveal that no procalcitonin has be en done here or in acute care. The patient did have a chest x-ray on the , which was reported to be a right lower lobe consolidation without significant change. The patient had a chest x-ray on the , right base. ASSESSMENT AND PLAN: This is a 66-year-old male with advanced chronic obstructive lung disease, ex-s moker, severe pulmonary hypertension, coronary artery disease, admitted to the acute care side with s epsis and right lower lobe community-acquired pneumonia with negative cultures and currently on ceftr iaxone, prednisone and azithromycin and mentioned in the acute care the patient's oxygenations were d own to 77, which we have qualified him for severe sepsis, right lower lobe community-acquired pneumon ia and was treated with ceftriaxone and azithromycin with a QTC of 461 on 5/2 and 442 and another EKG , and all 3 EKGs were done on 01/04, with 415. Will discontinue the azithromycin and place the patient on p.o. doxycycline. Continue ceftriaxone and order a procalcitonin. Will make further recommendat ions. Rigoberto Moreland MD cc: [id number] TT: 01/10/2017 19:29:14 Confirmation # [id number] Dictation # [id number] dn
--- NOTE | 2017-01-11 08:15 | PN ---
DATE: 01/11/2017 SUBJECTIVE: The patient appears very comfortable this morning. He is not short of breath at rest. PHYSICAL EXAMINATION: VITAL SIGNS: Temperature is 98.2, pulse 77, respirations 18, blood pressure 115 /78. Oxygen saturation on nasal cannula is 98%. HEENT: Normocephalic, atraumatic. No JVD. CARDIOVASCULAR: Positive S1, S2. No S3. LUNGS: Clear bilaterally this morning. EXTREMITIES: No clubbing, cyanosis, or edema. Calves are nontender to palpation. GASTROINTESTINAL: Abdomen is soft, nontender, nondistended. Bowel sounds are positive. SKIN: No acute rash. NEUROLOGIC: Limited at the present time. IMPRESSION: 1. Acute bronchitis. 2. Advanced chronic obstructive pulmonary disease. 3. Respiratory insufficiency. 4. Right lower lobe pneumonia. 5. Cardiac arrhythmias. PLAN: The patient appears very comfortable this morning. He is not short of breath at rest. He does state to feeling much better overall. On physical exam , his lungs are now clear. In addition, the oxygen saturation on nasal cannula is now 98%. I will continue with the current nebulizer treatments and low-dose intravenous steroids (decreased yesterday) for now. I would continue with the antibiotic coverage as per infectious disease. There are no temperatures noted. The leukocytosis has resolved. Clinical status of the patient is certainly improved -- compared to his initial presentation. However, again, the overall status/prognosis for this patient -- with advanced chronic obstructive pulmonary disease and pulmonary cachexia -- remains very guarded. I will discuss the above with Dr. Das. Mic Emerson MD cc: [id number] TT: 01/11/2017 08:14:21 Confirmation # [id number] Dictation # [id number] adams OSORIO
--- NOTE | 2017-01-11 09:45 | PN ---
DATE: 01/11/2017 I saw him comfortably in the TCU. He is eating well. He is in good spirits. He is doing well with physical therapy. He is eating better overall. MEDICATIONS: He is on albuterol, Doryx, heparin, Norvasc, Protonix, Pulmicort, Rocephin, IV fluids, Solu-Medrol, and Xanax. PHYSICAL EXAMINATION: VITAL SIGNS: Temp 98.2, 77 pulse, 115/78 blood pressure, 18 respiratory rate, 98% O2 sat on nasal cannula at 2 liters. HEAD: Atraumatic, normocephalic. Throat is moist. NECK: Supple. HEART: Regular rate. LUNGS: Decreased breath sounds, but clear to auscultation. ABDOMEN: Soft. EXTREMITIES: No edema. He is very thin and frail. LABORATORY DATA: He has a 5.1 white count, 14.6 hemoglobin hematocrit with 200 platelets. He has a 129 sodium. It is decreasing. I will call on renal and get their opinion. Potassium 4.6. BUN 23, creatinine 0.4, on IV fluids. GFR is greater than 60. Sugar is 82. Calcium is 8.2. Total bili is 0.8. AST is 29. ALT is 57. Alk phos is 42. Total protein is 6. He is currently on IV 0.9 and 30 to keep the sodium up. I will call on renal to get their opinion. Check his labs tomorrow. I encouraged him to eat well, drink water, and do well in therapy. He is here for COPD, right lower lobe pneumonia with acute bronchitis, SVT, CAD , pulmonary hypertension, and low sodium. Dc Das DO cc: [id number] TT: 01/11/2017 09:44:18 Confirmation # [id number] Dictation # [id number] jn MTDD
[2017-01-11 11:07] LABS: URIC ACID 2.1 mg/dL (3.5-8.5)
[2017-01-11 12:09] LABS: THYROID STIMULATING HORMONE 1.42 mIU/mL (0.46-4.68)
--- NOTE | 2017-01-11 14:30 | CP.PCM.CON ---
History of Present Illness - History of Present Illness History of Present Illness: Initial Nephrology Consultation: Assessment: Mild hyponatremia Iso-osmolar ? Volume status (appears euvolemic clinically although difficult to ascertain considering his cachexic status. Also with RV dysfunction with <50% IVC compressibility and low serum uric acid favors somewhat intravascular expansion) probably a component of SIADH due to his pneumonia, COPD chronic respi acidosis with metabolic compensation Severe pulmonary HTN, COPD with emphysema, recent pneumonia HTN well controlled Plan will check urine studies as urine Na, osmol and UA to further guide towards his volume status and etiology of hyponatremia repeat BMP in AM and will also check serum cortisol Further work up for as per primary team Thanks for allowing me to participate in care of your patient. Will follow patient with you. Please call if any Qs Dr Quinton Rush Office: [phone] Chief Complaint; cough HPI: Pt is a 66 y/o M with hx of severe COPD and active smoker who was recently admitted for pneumonia now admitted for SVT and renal is consulted for hyponatremia initial evaluation. pt at this time feels better. says he had gained 4 lbs. reports cough but better SOB. Denies chest pain, palpitation, shortness of breath, leg swelling Denies blood or bubbles in urine Denies OTC/herbal meds or NSAIDs not on any psych meds. ROS: Constitutional Symptoms: Denies fever. No chills. reports Recent Weight Changes as 4 lbs Wt gain Eyes: denies change in vision, denies watery eyes, denies double vision Ears/Nose/Mouth/Throat: Denies Abnormal Taste. No Bad breath or Bad Taste. Cardiovascular: No chest pain. There is no shortness of breath. No palpitations. Pulmonary: improved shortness of breath also has cough. Gastrointestinal: denies abdominal pain No nausea. No vomiting. Denies change in bowel habits. Denies Bleeding Genitourinary: No Change in force of strain when urinating. No increase in urinary frequency. No pain while urinating. Denies blood in urine. Neurological: Denies headaches. No dizziness. Denies loss of balance. Denies weakness, denies tingling/numbness Dermatological: No Rash or Bruising or ulcers. Psychiatric: Denies Anxiety. No depression. Denies hallucinations. Rheumatological: No joint pain. Denies Joint swelling Endocrine: Denies over tiredness. Denies Fatigue and Heat/Cold Intolerance. Physical Examination: General Appearance: Comfortable, in no acute respiratory distress, co-operative . appears cachexic Vitals reviewed and noted as below Head; Atraumatic, normocephalic ENT: no ulcers has thrush. Tongue is midline. Oropharynx: no rash or ulcers. EYES: Pupils are equal, round and reactive to light accommodation. Eye muscles and extraocular movement intact. Sclera is anicteric. Neck; supple no lymphadenopathy, no thyromegaly or bruit Lungs: Normal respiratory rate/effort. Breath sounds decreased at Rt base with crackles. Heart: Normal rate. s1s2 normal. No rub or gallop. Extremities: no edema. No varicose veins Neurological: Patient is alert, awake and oriented to person, place and time. No focal deficit. Strength bilateral appropriate and equal Skin: Warm and dry. Normal turgor. No rash. Palpitation: Normal elasticity for age Abdomen: Abdomen is soft. Bowel sounds +. There is no abdominal tenderness, no guarding/rigidity or organomegaly Psych: normal insight and normal affect/mood MSK: no joint tenderness or swelling. Digits and nails normal, no deformity : kidney or bladder not palpable Labs/imaging reviewed. Past medical history, past surgical history, family history, social history, allergy reviewed and noted as below Work up; Serum Osmol 284 Uric acid 2.1 TSH 1.4 Triglycer[address] chest: COPD with emphysema and RLL pneumonia Echo: moderate reduced RV function and >50% compressibility of IVC Past Patient History - Infectious Disease Hx of Infectious Diseases: None - Past Social History Smoking Status: Heavy Smoker > 10 Cigarettes Daily - PULMONARY Hx Chronic Obstructive Pulmonary Disease (COPD): Yes - MUSCULOSKELETAL/RHEUMATOLOGICAL Hx Falls: No - PSYCHIATRIC Hx Substance Use: No - SURGICAL HISTORY Hx Surgeries: No Meds Allergies/Adverse Reactions: Allergies Allergy/AdvReac Type Severity Reaction Status Date / Time No Known Allergies Allergy Verified 01/10/17 02:19 - Medications Medications: Current Medications Albuterol Sulfate (Albuterol 0.042% Inhal Bethany (1.25mg/3ml) Ud) 1.25 mg IH [id number] [facility] Last Admin: 01/11/17 11:16 Dose: 1.25 mg Alprazolam (Xanax) 0.5 mg PO HS PRN; Protocol PRN Reason: Anxiety Amlodipine Besylate (Norvasc) 2.5 mg PO DAILY [facility] Last Admin: 01/11/17 10:43 Dose: 2.5 mg Budesonide (Pulmicort Respules) 0.5 mg IH [id number] [facility] Last Admin: 01/11/17 07:30 Dose: 0.5 mg Doxycycline Hyclate (Doryx) 100 mg PO Q12 [facility] PRN Reason: Protocol Stop: 01/17/17 22:01 Last Admin: 01/11/17 10:43 Dose: 100 mg Heparin Sodium (Porcine) (Heparin) 5,000 units SC 0600,1800 [facility] PRN Reason: Protocol Last Admin: 01/11/17 05:38 Dose: 5,000 units Sodium Chloride (Sodium Chloride 0.9%) 1,000 mls @ 30 mls/hr IV .Q24H [facility] Last Admin: 01/10/17 21:26 Dose: 30 mls/hr Ceftriaxone Sodium (Rocephin 2 Gm Ivpb) 2 gm in 100 mls @ 100 mls/hr IVPB 0600 [facility] PRN Reason: Protocol Last Admin: 01/11/17 05:37 Dose: 100 mls/hr Methylprednisolone (Solu-Medrol) 30 mg IVP 0600,1800 [facility] Last Admin: 01/11/17 05:38 Dose: 30 mg Pantoprazole Sodium (Protonix Susp) 40 mg PO 0630 [facility] Last Admin: 01/11/17 05:42 Dose: 40 mg Results - Vital Signs Recent Vital Signs: Last Vital Signs Temp 98.1 F 01/11/17 10:00 Pulse 93 H 01/11/17 10:00 Resp 18 01/11/17 10:00 BP 115/78 01/11/17 10:43 Pulse Ox 98 01/11/17 10:00 - Labs Result Diagrams: 01/11/17 06:00 01/11/17 06:00 Labs: Laboratory Results - last 24 hr 01/11/17 01/11/17 01/11/17 06:00 06:00 06:30 WBC 5.1 RBC 4.66 Hgb 14.6 Hct 43.7 MCV 93.8 MCH 31.3 MCHC 33.4 RDW 15.0 H Plt Count 200 MPV 9.4 Sodium 129 L Potassium 4.6 Chloride 88 L Carbon Dioxide 36 H Anion Gap 10 BUN 23 H Creatinine 0.4 L Est GFR ( Amer) > 60 Est GFR (Non-Af Amer) > 60 Random Glucose 82 Serum Osmolality Uric Acid Calcium 8.2 L Total Bilirubin 0.8 AST 29 ALT 57 H Alkaline Phosphatase 42 NT-Pro-B Natriuret Pep Total Protein 6.0 Albumin 3.1 Globulin 2.9 Albumin/Globulin Ratio 1.1 Triglycerides Cholesterol LDL Cholesterol Direct HDL Cholesterol Procalcitonin 0.11 L TSH 3rd Generation 01/11/17 01/11/17 06:30 11:20 WBC RBC Hgb Hct MCV MCH MCHC RDW Plt Count MPV Sodium Potassium Chloride Carbon Dioxide Anion Gap BUN Creatinine Est GFR ( Amer) Est GFR (Non-Af Amer) Random Glucose Serum Osmolality 284 Uric Acid 2.1 L Calcium Total Bilirubin AST ALT Alkaline Phosphatase NT-Pro-B Natriuret Pep 144 Total Protein Albumin Globulin Albumin/Globulin Ratio Triglycerides 72 Cholesterol 157 LDL Cholesterol Direct 70 HDL Cholesterol 64 H Procalcitonin TSH 3rd Generation 1.42
--- NOTE | 2017-01-11 16:05 | CP.PCM.PN ---
Subjective - Date & Time of Evaluation Date of Evaluation: 01/11/17 Time of Evaluation: 12:10 - Subjective Subjective: Comfortable in bed, breathing better, not in distress. Afebrile overnight. Objective - Vital Signs/Intake and Output Vital Signs (last 24 hours): Temp Pulse Resp BP Pulse Ox 98.1 F 93 H 18 115/78 98 01/11/17 10:00 01/11/17 10:00 01/11/17 10:00 01/11/17 10:43 01/11/17 10:00 Intake and Output: 01/11/17 01/11/17 06:59 18:59 Intake Total 600 900 Output Total 900 500 Balance -300 400 - Medications Medications: Current Medications Albuterol Sulfate (Albuterol 0.042% Inhal Bethany (1.25mg/3ml) Ud) 1.25 mg IH [id number] [facility] Last Admin: 01/11/17 11:16 Dose: 1.25 mg Alprazolam (Xanax) 0.5 mg PO HS PRN; Protocol PRN Reason: Anxiety Amlodipine Besylate (Norvasc) 2.5 mg PO DAILY [facility] Last Admin: 01/11/17 10:43 Dose: 2.5 mg Budesonide (Pulmicort Respules) 0.5 mg IH [id number] [facility] Last Admin: 01/11/17 07:30 Dose: 0.5 mg Doxycycline Hyclate (Doryx) 100 mg PO Q12 [facility] PRN Reason: Protocol Stop: 01/17/17 22:01 Last Admin: 01/11/17 10:43 Dose: 100 mg Heparin Sodium (Porcine) (Heparin) 5,000 units SC 0600,1800 [facility] PRN Reason: Protocol Last Admin: 01/11/17 05:38 Dose: 5,000 units Sodium Chloride (Sodium Chloride 0.9%) 1,000 mls @ 30 mls/hr IV .Q24H [facility] Last Admin: 01/10/17 21:26 Dose: 30 mls/hr Ceftriaxone Sodium (Rocephin 2 Gm Ivpb) 2 gm in 100 mls @ 100 mls/hr IVPB 0600 [facility] PRN Reason: Protocol Last Admin: 01/11/17 05:37 Dose: 100 mls/hr Methylprednisolone (Solu-Medrol) 30 mg IVP 0600,1800 [facility] Last Admin: 01/11/17 05:38 Dose: 30 mg Nystatin (Nystatin Oral Susp) 5 ml PO QID [facility] Stop: 01/18/17 18:01 Pantoprazole Sodium (Protonix Susp) 40 mg PO 0630 [facility] Last Admin: 01/11/17 05:42 Dose: 40 mg - Labs Labs: 01/11/17 06:00 01/11/17 06:00 - Constitutional Appears: Non-toxic, No Acute Distress - Head Exam Head Exam: NORMAL INSPECTION - ENT Exam ENT Exam: Mucous Membranes Moist - Neck Exam Neck Exam: absent: Lymphadenopathy, Meningismus - Respiratory Exam Respiratory Exam: Decreased Breath Sounds - Cardiovascular Exam Cardiovascular Exam: +S1, +S2 - GI/Abdominal Exam GI & Abdominal Exam: Soft. absent: Tenderness Assessment and Plan - Assessment and Plan (Free Text) Plan: Assessment sepsis due to right lower lobe community-acquired pneumonia HTN COPD severe pulmonary HTN CAD Plan Continue Rocephin and Doxycycline day 2 to complete a 5-7 day course Will monitor clinically
[2017-01-11 17:51] LABS: PH,URINE 7.5 (4.7-8.0); URINE APPEARANCE CLEAR (CLEAR); URINE BILIRUBIN NEGATIVE (NEGATIVE); URINE BLOOD NEGATIVE (NEGATIVE); URINE COLOR YELLOW (YELLOW); URINE GLUCOSE (UA) NEGATIVE (NEGATIVE); URINE KETONE NEGATIVE (NEGATIVE); URINE LEUKOCYTE ESTERASE NEGATIVE Leu/uL (NEGATIVE); URINE PROTEIN NEGATIVE mg/dL (<30 mg/dL); URINE UROBILINOGEN 0.2 E.U./dL (<1 E.U./dL)
[2017-01-11] MEDS: Sodium Chloride 0.9% 1,000 ML IV SCH (18:39)
[2017-01-11] MEDS: Nystatin 100,000 Units/ml Oral Susp 5 ml UD PO SCH ×2 (18:44→21:39)
[2017-01-12] MEDS: Albuterol 0.042% Inhal Sol (1.25 mg/3 mL) UD IH SCH ×6 (00:15→20:45)
[2017-01-12] MEDS: cefTRIAXone 2 GM IN NS 2 GM/100 ML BAG IVPB SCH (05:50)
[2017-01-12] MEDS: Pantoprazole 40 mg Susp UD PO SCH (05:50)
[2017-01-12] MEDS: MethylPREDNISolone 40 mg Vial IVP SCH (05:52)
[2017-01-12 07:15] LABS: ALB/GLOB RATIO 1.1 (1.1-1.8); ALKALINE PHOSPHATASE 42 U/L (38-133); ALT/SGPT 57 U/L (7-56); AST/SGOT 27 U/L (15-59); BILIRUBIN,TOTAL 1.1 mg/dL (0.2-1.3); BLOOD UREA NITROGEN 20 mg/dL (7-21); CALCIUM 8.3 mg/dL (8.4-10.5); CARBON DIOXIDE 39 mmol/L (21-33); CHLORIDE 86 mmol/L (98-107); GFR AFRICAN-AMERICAN > 60; GLUCOSE,RANDOM 79 mg/dL (70-110); POTASSIUM 4.8 mmol/L (3.6-5.0); SODIUM 129 mmol/L (132-148)
[2017-01-12 07:24] LABS: MEAN CELL VOLUME 94.1 fL (80.0-105.0); MEAN CORPUSCULAR HEMOGLOBIN 31.1 pg (25.0-35.0); MEAN PLATELET VOLUME 8.6 fl (7.0-11.0); RED CELL DISTRIBUTION WIDTH 14.8 % (11.5-14.5); WHITE BLOOD COUNT 4.7 10^3/ul (4.5-11.0)
[2017-01-12] MEDS: Budesonide 0.5 mg/2 ml Inhal Susp UD IH SCH ×2 (07:37→20:45)
--- NOTE | 2017-01-12 08:38 | PN ---
DATE: 01/12/2017 SUBJECTIVE: The patient appears very comfortable at rest. He is not short of breath. PHYSICAL EXAMINATION: VITAL SIGNS: Temperature is 98.2, pulse 84, respirations 18/20, blood pressure 132/76. Oxygen saturation on nasal cannula is 95-96%. HEENT: Normocephalic, atraumatic. No JVD. CARDIOVASCULAR: Positive S1, S2. No S3. LUNGS: Clear bilaterally. EXTREMITIES: No clubbing, cyanosis, or edema. Calves are nontender to palpation. GASTROINTESTINAL: Abdomen is soft, nontender, nondistended. Bowel sounds are positive. SKIN: No acute rash. NEUROLOGIC: Limited at the present time. IMPRESSION: 1. Acute bronchitis. 2. Advanced chronic obstructive pulmonary disease. 3. Respiratory insufficiency. 4. Right lower lobe pneumonia. 5. Cardiac arrhythmias. PLAN: The patient appears very comfortable this morning. He is not short of breath at rest. He does state to feeling much better overall. On physical exam , his lungs remain clear. In addition, the alveolar arterial gradient has significantly decreased. I will continue with the current nebulizer treatments and change to oral steroids this morning. There are no temperatures noted. The leukocytosis has resolved. I would continue with the antibiotic coverage as per infectious disease. Input by Dr. Barroso is noted. Clinical status of the patient is significantly improved - compared to the initial presentation. However, again, the overall status/prognosis of this patient-- with advanced chronic obstructive pulmonary disease and pulmonary cachexia -- remains very guarded. I will discuss the above with Dr. Das this morning. Mic Emerson MD cc: [id number] TT: 01/12/2017 08:37:31 Confirmation # [id number] Dictation # [id number] maurice OSORIO
--- NOTE | 2017-01-12 08:52 | PN ---
DATE: 01/12/2017 I see him in the TCU. He is comfortable, resting in bed. He is doing well with eating, going to the bathroom. He is walking better. He is getting IV antibiotics. He is on albuterol, Doryx, heparin, Norvasc, nystatin, Protonix, Pulmicort, Rocephin, Solu-Medrol, Xa nax. I will decrease his Solu-Medrol today. PHYSICAL EXAMINATION: VITAL SIGNS: Temp 98.2, 84 pulse, 132/76 blood pressure, 20 respiratory rate, 95% O2 sat on 2 liters nasal cannula. HEAD: Atraumatic, normocephalic. Throat is moist. NECK: Supple. HEART: Regular rate. LUNGS: Have decreased breath sounds bilaterally, but no wheezes, rhonchi, or rales. ABDOMEN: Soft. EXTREMITIES: No edema, and he is thin and frail, but he tells me he is eating. LABORATORY DATA: He has a 4.7 white count, 14.2 hemoglobin, 43 hematocrit with 227 platelets. Sodiu m 129 - is still low, 4.6 potassium. I am actually waiting for today's SMA20 to populate - that was yesterday's. I do not know today's SMA20. His last TSH was 1.42. Urine is clean. He has a consult with renal for the low sodium, infectious disease and pulmonology. He is still on I V fluids. I am going to check his labs tomorrow. He has got sepsis due to right lower lobe pneumoni a, COPD, pulmonary hypertension, which is severe, and we will continue aggressive treatment and care with antibiotics, physical therapy, and now renal is on the case to help us with his low sodium. We will wait for this morning's labs to come back. We will order labs for tomorrow. Continue aggressiv e treatment and care on the patient. Dc Das DO cc: [id number] TT: 01/12/2017 08:52:05 Confirmation # [id number] Dictation # [id number] maxi
[2017-01-12] MEDS: Nystatin 100,000 Units/ml Oral Susp 5 ml UD PO SCH ×4 (09:49→21:58)
[2017-01-12 12:38] LABS: CORTISOL AM 4.4 ug/dL (4.46-22.7)
--- NOTE | 2017-01-12 13:07 | CP.PCM.PN ---
Subjective - Date & Time of Evaluation Date of Evaluation: 01/12/17 Time of Evaluation: 13:02 - Subjective Subjective: Follow up nephrology note Assessment: Mild hyponatremia ? Volume status (appears euvolemic clinically although difficult to ascertain considering his cachexic status. 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 oral fluid restiction to 1200 mL/day Further work up/management of pneumonia/COPD as per primary team Thanks for allowing me to participate in care of your patient. Will follow patient with you. Please call if any Qs Dr Quinton Rush Office: [phone] ROS: feels better. Cough better. denies SOB. appetite okay. making urine without difficulty. Physical Examination: General Appearance: Comfortable, in no acute respiratory distress, co-operative . appears cachexic Vitals reviewed and noted as below Head; Atraumatic, normocephalic ENT: no ulcers improved thrush. Tongue is midline. Oropharynx: no rash or ulcers. Lungs: Normal respiratory rate/effort. Breath sounds decreased at Rt base with crackles. Heart: Normal rate. s1s2 normal. No rub or gallop. Extremities: no edema. No varicose veins Neurological: Patient is alert, awake and oriented to person, place and time. No focal deficit. Strength bilateral appropriate and equal Skin: Warm and dry. Normal turgor. No rash. Palpitation: Normal elasticity for age Abdomen: Abdomen is soft. Bowel sounds +. There is no abdominal tenderness, no guarding/rigidity or organomegaly : kidney or bladder not palpable Labs/imaging reviewed. Past medical history, past surgical history, family history, social history, allergy reviewed Work up; Serum Osmol 284 Uric acid 2.1 TSH 1.4 Triglyceride [address] chest: COPD with emphysema and RLL pneumonia Echo: moderate reduced RV function and >50% compressibility of IVC Urine Na 122 and osmol 599 AM cortisol 4.1 but pt on steroids Objective - Vital Signs/Intake and Output Vital Signs (last 24 hours): Temp Pulse Resp BP Pulse Ox 98.4 F 82 20 128/78 98 01/12/17 10:00 01/12/17 10:00 01/12/17 10:00 01/12/17 10:00 01/12/17 10:00 - Medications Medications: Current Medications Albuterol Sulfate (Albuterol 0.042% Inhal Bethany (1.25mg/3ml) Ud) 1.25 mg IH [id number] [facility] Last Admin: 01/12/17 11:02 Dose: 1.25 mg Alprazolam (Xanax) 0.5 mg PO HS PRN; Protocol PRN Reason: Anxiety Amlodipine Besylate (Norvasc) 2.5 mg PO DAILY [facility] Last Admin: 01/12/17 09:48 Dose: 2.5 mg Budesonide (Pulmicort Respules) 0.5 mg IH [id number] [facility] Last Admin: 01/12/17 07:37 Dose: 0.5 mg Doxycycline Hyclate (Doryx) 100 mg PO Q12 [facility] PRN Reason: Protocol Stop: 01/17/17 22:01 Last Admin: 01/12/17 09:47 Dose: 100 mg Heparin Sodium (Porcine) (Heparin) 5,000 units SC 0600,1800 [facility] PRN Reason: Protocol Last Admin: 01/12/17 05:51 Dose: 5,000 units Ceftriaxone Sodium (Rocephin 2 Gm Ivpb) 2 gm in 100 mls @ 100 mls/hr IVPB 0600 [facility] PRN Reason: Protocol Last Admin: 01/12/17 05:50 Dose: 100 mls/hr Nystatin (Nystatin Oral Susp) 5 ml PO QID [facility] Stop: 01/18/17 18:01 Last Admin: 01/12/17 09:49 Dose: 5 ml Pantoprazole Sodium (Protonix Susp) 40 mg PO 0630 [facility] Last Admin: 01/12/17 05:50 Dose: 40 mg Prednisone (Prednisone Tab) 40 mg PO DAILY [facility] Last Admin: 01/12/17 10:11 Dose: 40 mg - Labs Labs: 01/12/17 06:00 01/12/17 06:00
--- NOTE | 2017-01-12 16:31 | CP.PCM.PN ---
Subjective - Date & Time of Evaluation Date of Evaluation: 01/12/17 Time of Evaluation: 11:30 - Subjective Subjective: Comfortable, breathing much better, no nausea or diarrhea, no cough currently, no fevers overnight. Objective - Vital Signs/Intake and Output Vital Signs (last 24 hours): Temp Pulse Resp BP Pulse Ox 98.4 F 82 20 128/78 98 01/12/17 10:00 01/12/17 10:00 01/12/17 10:00 01/12/17 10:00 01/12/17 10:00 - Medications Medications: Current Medications Albuterol Sulfate (Albuterol 0.042% Inhal Beth[place] (1.25mg/3ml) Ud) 1.25 mg IH [id number] [facility] Last Admin: 01/12/17 11:02 Dose: 1.25 mg Alprazolam (Xanax) 0.5 mg PO HS PRN; Protocol PRN Reason: Anxiety Amlodipine Besylate (Norvasc) 2.5 mg PO DAILY [facility] Last Admin: 01/12/17 09:48 Dose: 2.5 mg Budesonide (Pulmicort Respules) 0.5 mg IH [id number] [facility] Last Admin: 01/12/17 07:37 Dose: 0.5 mg Doxycycline Hyclate (Doryx) 100 mg PO Q12 [facility] PRN Reason: Protocol Stop: 01/17/17 22:01 Last Admin: 01/12/17 09:47 Dose: 100 mg Heparin Sodium (Porcine) (Heparin) 5,000 units SC 0600,1800 [facility] PRN Reason: Protocol Last Admin: 01/12/17 05:51 Dose: 5,000 units Ceftriaxone Sodium (Rocephin 2 Gm Ivpb) 2 gm in 100 mls @ 100 mls/hr IVPB 0600 [facility] PRN Reason: Protocol Last Admin: 01/12/17 05:50 Dose: 100 mls/hr Nystatin (Nystatin Oral Susp) 5 ml PO QID [facility] Stop: 01/18/17 18:01 Last Admin: 01/12/17 13:05 Dose: 5 ml Pantoprazole Sodium (Protonix Susp) 40 mg PO 0630 [facility] Last Admin: 01/12/17 05:50 Dose: 40 mg Prednisone (Prednisone Tab) 40 mg PO DAILY [facility] Last Admin: 01/12/17 10:11 Dose: 40 mg - Labs Labs: 01/12/17 06:00 01/12/17 06:00 - Constitutional Appears: Non-toxic, No Acute Distress - Head Exam Head Exam: NORMAL INSPECTION - ENT Exam ENT Exam: Mucous Membranes Moist - Neck Exam Neck Exam: absent: Lymphadenopathy, Meningismus - Respiratory Exam Respiratory Exam: Decreased Breath Sounds - Cardiovascular Exam Cardiovascular Exam: +S1, +S2 - GI/Abdominal Exam GI & Abdominal Exam: Soft. absent: Tenderness Assessment and Plan - Assessment and Plan (Free Text) Plan: Assessment sepsis due to right lower lobe community-acquired pneumonia, clinically improving HTN COPD severe pulmonary HTN CAD Plan Continue Rocephin and Doxycycline day 3 to complete a 5-7 day course Will continue to monitor clinically
[2017-01-13] MEDS: cefTRIAXone 2 GM IN NS 2 GM/100 ML BAG IVPB SCH (05:27)
[2017-01-13] MEDS: Pantoprazole 40 mg Susp UD PO SCH (05:37)
[2017-01-13 07:24] LABS: HEMATOCRIT 43.4 % (42.0-52.0); MEAN CELL VOLUME 93.9 fL (80.0-105.0); MEAN CORPUSCULAR HEMOGLOBIN 32.3 pg (25.0-35.0); MEAN CORPUSCULAR HGB CONC 34.3 g/dl (31.0-37.0); MEAN PLATELET VOLUME 8.6 fl (7.0-11.0); RED CELL DISTRIBUTION WIDTH 14.6 % (11.5-14.5); WHITE BLOOD COUNT 5.7 10^3/ul (4.5-11.0)
[2017-01-13 07:37] LABS: ALB/GLOB RATIO 1.1 (1.1-1.8); ALKALINE PHOSPHATASE 42 U/L (38-133); ALT/SGPT 60 U/L (7-56); AST/SGOT 27 U/L (15-59); BILIRUBIN,TOTAL 1.1 mg/dL (0.2-1.3); BLOOD UREA NITROGEN 24 mg/dL (7-21); CALCIUM 8.5 mg/dL (8.4-10.5); CHLORIDE 86 mmol/L (98-107); GFR AFRICAN-AMERICAN > 60; GLUCOSE,RANDOM 78 mg/dL (70-110); SODIUM 130 mmol/L (132-148); TOTAL PROTEIN 6.2 g/dL (5.8-8.3)
--- NOTE | 2017-01-13 07:43 | PN ---
DATE: 01/13/2017 SUBJECTIVE: The patient appears very comfortable at rest. He is not short of breath. PHYSICAL EXAMINATION: VITAL SIGNS: Temperature is 98.4, pulse 82, respirations 18/20, blood pressure 128/78. Oxygen saturation on nasal cannula is 98%. HEENT: Normocephalic, atraumatic. No JVD. CARDIOVASCULAR: Positive S1, S2. No S3. LUNGS: Clear bilaterally. EXTREMITIES: No clubbing, cyanosis, or edema. Calves are nontender to palpation. GASTROINTESTINAL: Abdomen is soft, nontender, nondistended. Bowel sounds are positive. SKIN: No acute rash. NEUROLOGIC: Limited at the present time. IMPRESSION: 1. Acute bronchitis. 2. Advanced chronic obstructive pulmonary disease. 3. Respiratory insufficiency. 4. Right lower lobe pneumonia. 5. Cardiac arrhythmias. PLAN: The patient appears very comfortable this morning. He is not short of breath at rest. He does state to feeling much, much better overall. On physical exam, his lungs remain clear. Oxygen saturation on nasal cannula is now 98%. I will continue with the current nebulizer treatments and oral steroids (changed yesterday) for now. The patient remains on antibiotic therapy -- as per infectious disease. There are no temperatures noted. The leukocytosis has resolved. In addition, there was a procalcitonin done -- 2016 -- negative. Clinical status of the patient is significantly improved -- compared to the initial presentation. However, again, the overall status/ prognosis-- for this patient with advanced chronic obstructive pulmonary disease and pulmonary cachexia -- remains very guarded. I will discuss the above with Dr. Das. Mic Emerson MD cc: [id number] TT: 01/13/2017 07:42:27 Confirmation # [id number] Dictation # [id number] en MTDD
[2017-01-13] MEDS: Budesonide 0.5 mg/2 ml Inhal Susp UD IH SCH ×2 (07:51→20:13)
[2017-01-13] MEDS: Albuterol 0.042% Inhal Sol (1.25 mg/3 mL) UD IH SCH ×5 (07:51→23:00)
[2017-01-13 07:53] LABS: CARBON DIOXIDE 42 mmol/L (21-33)
--- NOTE | 2017-01-13 09:24 | PN ---
DATE: 01/13/2017 I saw him in the transitional care unit. He is resting comfortably in bed. He is doing well. He is getting his IV antibiotics. He is eating well, doing well with physical therapy. He is improving. He is in good spirits. No chest pain or shortness of breath. No abdominal pain. He is on IV antibiotics. PHYSICAL EXAMINATION: VITAL SIGNS: He has 98.4 temp, 82 pulse, 128/78 blood pressure, 20 respiratory rate, 98% O2 sat on 2 liters nasal cannula. HEAD: Atraumatic, normocephalic. Throat is moist. NECK: Supple. HEART: Regular rate. LUNGS: Decreased breath sounds, almost no air movement, but much better than when he came in, and clear to auscultation. No wheezes, no rhonchi, no rales. ABDOMEN: Soft, scaphoid. EXTREMITIES: No edema. He is thin and frail. He has not smoked since he has been in the hospital. Hopefully, he will maintain that when he leaves. MEDICATIONS: He is on albuterol, Doryx, heparin, Norvasc, nystatin, prednisone. He is off the Solu-Medrol, Protonix, and Pulmicort. He is being seen by pulmonary, renal, and infectious disease. LABORATORY DATA: He has a 5.7 white count, 14.9 hemoglobin, hematocrit, and 214 platelets. Sodium 130, 5 potassium. BUN 24, creatinine 0.5. GFR is greater than 60. Sugar is 78. Calcium is 8.5. Total bili is 1.1. AST is 27. ALT is 60. Alk phos is 42. Total protein 6.2. Albumin is 3.2. Numbers are starting to improve. We will continue IV antibiotics. We will check his labs tomorrow. Encouragement to participate in physical therapy. Continue as per consults, and when I can stop the IV antibiotics, I will discharge him home. I encouraged him never to smoke again. Dc Das DO cc: [id number] TT: 01/13/2017 09:24:23 Confirmation # [id number] Dictation # [id number] maxi [facility]
--- NOTE | 2017-01-13 09:57 | CP.PCM.PN ---
Subjective - Date & Time of Evaluation Date of Evaluation: 01/13/17 Time of Evaluation: 09:52 - Subjective Subjective: Follow up nephrology note Assessment: Mild hyponatremia ? Volume status (appears euvolemic clinically although difficult to ascertain considering his cachexic status. 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 pt was educated about it. smoking cessation Further work up/management of pneumonia/COPD as per primary team Thanks for allowing me to participate in care of your patient. d/c in office with me 1-2 week after discharge. Please call if any Qs Dr Quinton Rush ([address] [place] [address]) Office: [phone] ROS: feels better. Cough better. denies SOB. appetite okay. making urine without difficulty. Physical Examination: General Appearance: Comfortable, in no acute respiratory distress, co-operative . appears cachexic Vitals reviewed and noted as below Head; Atraumatic, normocephalic ENT: no ulcers resolved thrush. Tongue is midline. Oropharynx: no rash or ulcers. Lungs: Normal respiratory rate/effort. Breath sounds decreased at Rt base with crackles. Heart: Normal rate. s1s2 normal. No rub or gallop. Extremities: no edema. No varicose veins Neurological: Patient is alert, awake and oriented to person, place and time. No focal deficit. Strength bilateral appropriate and equal Skin: Warm and dry. Normal turgor. No rash. Palpitation: Normal elasticity for age Abdomen: Abdomen is soft. Bowel sounds +. There is no abdominal tenderness, no guarding/rigidity or organomegaly : kidney or bladder not palpable Labs/imaging reviewed. Past medical history, past surgical history, family history, social history, allergy reviewed Work up; Serum Osmol 284 Uric acid 2.1 TSH 1.4 Trig[address] chest: COPD with emphysema and RLL pneumonia. no lung mass Echo: moderate reduced RV function and >50% compressibility of IVC Urine Na 122 and osmol 599 AM cortisol 4.1 but pt on steroids Objective - Vital Signs/Intake and Output Vital Signs (last 24 hours): Temp Pulse Resp BP Pulse Ox 98.4 F 82 20 128/78 98 01/12/17 10:00 01/12/17 10:00 01/12/17 10:00 01/12/17 10:00 01/12/17 10:00 - Medications Medications: Current Medications Albuterol Sulfate (Albuterol 0.042% Inhal Bethany (1.25mg/3ml) Ud) 1.25 mg IH [id number] [facility] Last Admin: 01/13/17 07:51 Dose: 1.25 mg Alprazolam (Xanax) 0.5 mg PO HS PRN; Protocol PRN Reason: Anxiety Amlodipine Besylate (Norvasc) 2.5 mg PO DAILY [facility] Last Admin: 01/12/17 09:48 Dose: 2.5 mg Budesonide (Pulmicort Respules) 0.5 mg IH [id number] [facility] Last Admin: 01/13/17 07:51 Dose: 0.5 mg Doxycycline Hyclate (Doryx) 100 mg PO Q12 [facility] PRN Reason: Protocol Stop: 01/17/17 22:01 Last Admin: 01/12/17 21:58 Dose: 100 mg Heparin Sodium (Porcine) (Heparin) 5,000 units SC 0600,1800 [facility] PRN Reason: Protocol Last Admin: 01/13/17 05:26 Dose: 5,000 units Ceftriaxone Sodium (Rocephin 2 Gm Ivpb) 2 gm in 100 mls @ 100 mls/hr IVPB 0600 [facility] PRN Reason: Protocol Last Admin: 01/13/17 05:27 Dose: 100 mls/hr Nystatin (Nystatin Oral Susp) 5 ml PO QID [facility] Stop: 01/18/17 18:01 Last Admin: 01/12/17 21:58 Dose: 5 ml Pantoprazole Sodium (Protonix Susp) 40 mg PO 0630 [facility] Last Admin: 01/13/17 05:37 Dose: 40 mg Prednisone (Prednisone Tab) 40 mg PO DAILY [facility] Last Admin: 01/12/17 10:11 Dose: 40 mg - Labs Labs: 01/13/17 06:30 01/13/17 06:30
[2017-01-13] MEDS: Nystatin 100,000 Units/ml Oral Susp 5 ml UD PO SCH ×4 (11:00→21:11)
--- NOTE | 2017-01-13 13:16 | PN ---
DATE: 01/13/2017 The patient is in the TCU participating with physical therapy. The patient's dyspnea has improved. PHYSICAL EXAMINATION: VITAL SIGNS: The blood pressure is 106/53, the heart rate is in the 90s. NECK: Negative JVD. LUNGS: Decreased breath sounds without rales. HEART: Reveals S1, S2. EXTREMITIES: Without edema. LABORATORIES: Hemoglobin is 14.9. Chemistries: The CO2 is 42 with a BUN and creatinine of 24 and 0 .5. IMPRESSION: 1. Exacerbation of severe chronic obstructive pulmonary disease. 2. Severe pulmonary hypertension. 3. Pneumonia. 4. Dyspnea which is improved. Given these findings, the patient will need extensive physical therapy and completion of his antibiot ic course. Ja Kam MD cc: [id number] TT: 01/13/2017 13:14:46 Confirmation # [id number] Dictation # [id number] tn
--- NOTE | 2017-01-13 13:45 | PN ---
DATE: 01/13/2017 The patient is in bed, in no acute distress, nontoxic. However, chronically ill, debilitated. PHYSICAL EXAMINATION: VITAL SIGNS: Temperature is 98, blood pressure is 120/70, respiratory rate of 16. HEENT: Unremarkable. NECK: Supple. LUNGS: Have decreased breath sounds. HEART: Normal S1, S2. ABDOMEN: Soft, nontender. LABORATORY EXAMINATION: Reveals the patient's white count is 5.7, hemoglobin of 14. Sodium is 130, BUN of 24, creatinine of 0.5. The urinalysis is noted. ASSESSMENT AND PLAN: A 66-year-old with sepsis due to right lower lobe community-acquired pneumonia, hypertension, chronic obstructive lung disease, severe pulmonary hypertension. On Rocephin and doxy cycline, day #4. Would complete 5-7 days. Blood cultures have been reported negative and nasal meth icillin-resistant Staphylococcus aureus screen is negative. The doxycycline is p.o. The patient is also on prednisone. The patient is also on ceftriaxone. Will continue the present course. Rigoberto Moreland MD cc: [id number] TT: 01/13/2017 13:44:43 Confirmation # [id number] Dictation # [id number] en
[2017-01-14] MEDS: Albuterol 0.042% Inhal Sol (1.25 mg/3 mL) UD IH SCH ×6 (04:00→20:32)
[2017-01-14] MEDS: cefTRIAXone 2 GM IN NS 2 GM/100 ML BAG IVPB SCH (05:29)
[2017-01-14] MEDS: Pantoprazole 40 mg Susp UD PO SCH (06:41)
[2017-01-14 07:19] LABS: HEMATOCRIT 40.4 % (42.0-52.0); MEAN CELL VOLUME 92.7 fL (80.0-105.0); MEAN CORPUSCULAR HEMOGLOBIN 31.2 pg (25.0-35.0); MEAN CORPUSCULAR HGB CONC 33.7 g/dl (31.0-37.0); MEAN PLATELET VOLUME 8.5 fl (7.0-11.0); RED CELL DISTRIBUTION WIDTH 14.6 % (11.5-14.5); WHITE BLOOD COUNT 6.5 10^3/ul (4.5-11.0)
[2017-01-14 07:24] LABS: ALB/GLOB RATIO 1.2 (1.1-1.8); ALKALINE PHOSPHATASE 42 U/L (38-133); ALT/SGPT 60 U/L (7-56); AST/SGOT 34 U/L (15-59); BLOOD UREA NITROGEN 21 mg/dL (7-21); CALCIUM 8.3 mg/dL (8.4-10.5); CARBON DIOXIDE 39 mmol/L (21-33); CHLORIDE 87 mmol/L (98-107); GFR AFRICAN-AMERICAN > 60; GLUCOSE,RANDOM 77 mg/dL (70-110); POTASSIUM 4.2 mmol/L (3.6-5.0); SODIUM 128 mmol/L (132-148); TOTAL PROTEIN 5.6 g/dL (5.8-8.3)
[2017-01-14] MEDS: Budesonide 0.5 mg/2 ml Inhal Susp UD IH SCH ×2 (07:26→20:32)
--- NOTE | 2017-01-14 07:51 | PN ---
DATE: 01/14/2017 SUBJECTIVE: The patient appears comfortable this morning. He is not short of breath at rest. PHYSICAL EXAMINATION: VITAL SIGNS: Temperature is 98.0, pulse this morning is approximately 80, respirations 18, blood pressure 113/73. Oxygen saturation on nasal cannula is 94%-98%. HEENT: Normocephalic, atraumatic. No JVD. CARDIOVASCULAR: Positive S1, S2. No S3. LUNGS: Clear bilaterally. EXTREMITIES: No clubbing, cyanosis, or edema. Calves are nontender to palpation. GASTROINTESTINAL: Abdomen is soft, nontender, nondistended. Bowel sounds are positive. SKIN: No acute rash. NEUROLOGIC: Limited at the present time. IMPRESSION: 1. Acute bronchitis. 2. Advanced chronic obstructive pulmonary disease. 3. Respiratory insufficiency. 4. Right lower lobe pneumonia. 5. Cardiac arrhythmias. PLAN: The patient appears very comfortable this morning. He is not short of breath at rest. He states he is feeling much better overall. On physical exam , his lungs remain clear. Oxygen saturation on nasal cannula is 94%-98%. I will continue with the current nebulizer treatments and decrease the oral steroids this morning. The patient remains on antibiotic therapy. There are no temperatures noted. The leukocytosis has resolved. Clinical status of the patient is significantly improved -- compared to the original presentation. However, again, the overall status/prognosis of this patient -- with advanced chronic obstructive pulmonary disease and pulmonary cachexia -- remains very guarded. I will discuss the above with Dr. Das. Mic Emerson MD cc: [id number] TT: 01/14/2017 07:50:27 Confirmation # [id number] Dictation # [id number] en MTDD
--- NOTE | 2017-01-14 09:00 | PN ---
DATE: 01/14/2017 I saw him in the transitional care unit. He is doing well. He is eating well, breathing better. He is on nebulizer treatments; he likes that. He is on IV antibiotics from infectious disease. He is definitely improving. PHYSICAL EXAMINATION: VITAL SIGNS: He has a 98 temp, 103 pulse, 113/73 blood pressure, 20 respiratory rate, 94% O2 sat on 3 liters nasal cannula. HEAD: Atraumatic, normocephalic. Throat is moist. NECK: Supple. HEART: Regular rate. LUNGS: Decreased breath sounds, almost no air movement, but clear. No wheezes, no rhonchi, no rales . ABDOMEN: Soft, scaphoid. EXTREMITIES: No edema, and he is thin and frail. MEDICATIONS: He is currently on albuterol, Doryx, heparin, Norvasc, nystatin, prednisone, Protonix, Pulmicort, Rocephin, Xanax. LABORATORY DATA: He has a 6.5 white count, 13.6 hemoglobin, 40.4 hematocrit with 231 platelets. Sod ium 128 (still a little bit low), 4.2 potassium, BUN 29, creatinine 0.5, GFR is greater than 60, suga r is 77, calcium is 8.3. AST is 34, ALT is 60, alkaline phosphatase 42, total protein is 5.6. He is being seen by a few doctors: He has pulmonary who thinks he is improving; infectious disease, has to finish the IV antibiotics; cardio thinks he is doing as well as he can be doing; and renal is watching his low sodium, and hopefully that will improve. I will check his labs tomorrow. Continue with aggressive treatment and care and current course. He will do physical therapy, get stronger, ea t. He is here for numerous reasons: Chronic obstructive pulmonary disease, right lower lobe pneumonia, systemic inflammatory response syndrome, low sodium, pulmonary hypertension, supraventricular tachyca rdia, coronary artery disease, acute bronchitis. Dc Das DO cc: [id number] TT: 01/14/2017 08:59:31 Confirmation # [id number] Dictation # [id number] mn
--- NOTE | 2017-01-14 10:31 | PN ---
DATE: 01/14/2017 The patient is in the TCU. His breathing is much improved. PHYSICAL EXAMINATION: VITAL SIGNS: Blood pressure is 113/73, the heart rate is in the 90s. NECK: Negative JVD. LUNGS: Without rales, without wheezing. HEART: Reveals S1, S2. EXTREMITIES: Without edema. The hemoglobin is 13.6. Chemistries: BUN and creatinine are unremarkable. IMPRESSION: 1. Improvement of severe chronic obstructive pulmonary disease symptoms. 2. Pulmonary hypertension (severe). 3. Pneumonia, which is resolving. 4. Dyspnea is improved. Given these findings, his acute condition is much improved. His prognosis is limited due to his mani re chronic obstructive pulmonary disease as well as his severe pulmonary hypertension. Ja Kam MD cc: [id number] TT: 01/14/2017 10:30:33 Confirmation # [id number] Dictation # [id number] en
[2017-01-14] MEDS: Nystatin 100,000 Units/ml Oral Susp 5 ml UD PO SCH ×4 (11:15→21:50)
[2017-01-14] MEDS ORDERED: Tolvaptan 15 MG TAB PO SCH (15:15)
--- NOTE | 2017-01-14 15:15 | CP.PCM.PN ---
Subjective - Date & Time of Evaluation Date of Evaluation: 01/14/17 Time of Evaluation: 15:13 - Subjective Subjective: Follow up nephrology note Assessment: Mild hyponatremia ? Volume status (appears euvolemic clinically although difficult to ascertain considering his cachexic status. 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 Serum Na level declining. Will try a dose of tolvaptan 15 mg once today. will remove fluid restriction for today. will monitor serum Na smoking cessation Further work up/management of pneumonia/COPD as per primary team pt to follow oral fluid restriction at home Thanks for allowing me to participate in care of your patient. d/c in office with me 1-2 week after discharge. Please call if any Qs Dr Quinton Rush ([address] [place] [address]) Office: [phone] ROS: feels better. Cough better. denies SOB. appetite okay. making urine without difficulty. Physical Examination: General Appearance: Comfortable, in no acute respiratory distress, co-operative . appears cachexic Vitals reviewed and noted as below Head; Atraumatic, normocephalic ENT: no ulcers resolved thrush. Tongue is midline. Oropharynx: no rash or ulcers. Lungs: Normal respiratory rate/effort. Breath sounds decreased at base. Heart: Normal rate. s1s2 normal. No rub or gallop. Extremities: no edema. No varicose veins Neurological: Patient is alert, awake and oriented to person, place and time. No focal deficit. Strength bilateral appropriate and equal Skin: Warm and dry. Normal turgor. No rash. Palpitation: Normal elasticity for age Abdomen: Abdomen is soft. Bowel sounds +. There is no abdominal tenderness, no guarding/rigidity or organomegaly : kidney or bladder not palpable Labs/imaging reviewed. Past medical history, past surgical history, family history, social history, allergy reviewed Work up; Serum Osmol 284 Uric acid 2.1 TSH 1.4 Triglyceride [address] chest: COPD with emphysema and RLL pneumonia. no lung mass Echo: moderate reduced RV function and >50% compressibility of IVC Urine Na 122 and osmol 599 AM cortisol 4.1 but pt on steroids Objective - Vital Signs/Intake and Output Vital Signs (last 24 hours): Temp Pulse Resp BP Pulse Ox 97.4 F L 81 18 107/75 97 01/14/17 10:00 01/14/17 10:00 01/14/17 10:00 01/14/17 11:14 01/14/17 10:00 - Medications Medications: Current Medications Albuterol Sulfate (Albuterol 0.042% Inhal Bethany (1.25mg/3ml) Ud) 1.25 mg IH [id number] [facility] Last Admin: 01/14/17 11:29 Dose: 1.25 mg Alprazolam (Xanax) 0.5 mg PO HS PRN; Protocol PRN Reason: Anxiety Amlodipine Besylate (Norvasc) 2.5 mg PO DAILY [facility] Last Admin: 01/14/17 11:14 Dose: 2.5 mg Budesonide (Pulmicort Respules) 0.5 mg IH [id number] [facility] Last Admin: 01/14/17 07:26 Dose: 0.5 mg Doxycycline Hyclate (Doryx) 100 mg PO Q12 [facility] PRN Reason: Protocol Stop: 01/17/17 22:01 Last Admin: 01/14/17 11:15 Dose: 100 mg Heparin Sodium (Porcine) (Heparin) 5,000 units SC 0600,1800 [facility] PRN Reason: Protocol Last Admin: 01/14/17 07:48 Dose: Not Given Ceftriaxone Sodium (Rocephin 2 Gm Ivpb) 2 gm in 100 mls @ 100 mls/hr IVPB 0600 [facility] PRN Reason: Protocol Last Admin: 01/14/17 05:29 Dose: 100 mls/hr Nystatin (Nystatin Oral Susp) 5 ml PO QID [facility] Stop: 01/18/17 18:01 Last Admin: 01/14/17 14:14 Dose: 5 ml Pantoprazole Sodium (Protonix Susp) 40 mg PO 0630 [facility] Last Admin: 01/14/17 06:41 Dose: 40 mg Prednisone (Prednisone Tab) 30 mg PO DAILY [facility] Last Admin: 01/14/17 11:16 Dose: 30 mg Tolvaptan (Samsca) 15 mg PO DAILY [facility] Stop: 01/14/17 15:16 - Labs Labs: 01/14/17 06:45 01/14/17 06:45
--- NOTE | 2017-01-14 21:15 | PN ---
DATE: 01/14/2017 The patient is in bed in no acute distress, was seen in room 316. PHYSICAL EXAMINATION: VITAL SIGNS: Temperature is 97, blood pressure is 117/80, respiratory rate of 18, heart rate of 94. HEENT: Unremarkable. NECK: Supple. LUNGS: Have decreased breath sounds. HEART: Normal S1, S2. ABDOMEN: Soft, nontender. LABORATORY DATA: Reveals the patient's white count is 6.5, hemoglobin of 13, platelets of 231. BUN of 21, creatinine of 0.5. ASSESSMENT AND PLAN: This is a 66-year-old with sepsis due to a lower lobe community-acquired pneumo abhishek, hypertension, chronic obstructive lung disease, severe pulmonary hypertension on Rocephin and do xycycline day #5. Would complete 5-7 days of antibiotics and the patient is improving. Review of e orders reveals doxycycline, prednisone and ceftriaxone to be active. Will follow with you. Rigoberto Moreland MD cc: [id number] TT: 01/14/2017 21:15:22 Confirmation # [id number] Dictation # [id number] dn
[2017-01-15] MEDS: Albuterol 0.042% Inhal Sol (1.25 mg/3 mL) UD IH SCH ×6 (00:29→23:52)
[2017-01-15] MEDS: cefTRIAXone 2 GM IN NS 2 GM/100 ML BAG IVPB SCH (05:58)
[2017-01-15] MEDS: Pantoprazole 40 mg Susp UD PO SCH (05:58)
[2017-01-15] MEDS: Budesonide 0.5 mg/2 ml Inhal Susp UD IH SCH ×2 (07:42→20:33)
--- NOTE | 2017-01-15 10:20 | PN ---
DATE: 01/15/2017 SUBJECTIVE: The patient appears very comfortable this morning. He is not short of breath at rest. OBJECTIVE: VITAL SIGNS: Temperature is 97.5, pulse 69, respirations 18/20, blood pressure 108/82. Oxygen saturation on room air -- 93%. Oxygen saturation on nasal canula -- 97%. HEENT: Normocephalic, atraumatic. No JVD. CARDIOVASCULAR: Positive S1, S2. No S3. LUNGS: Clear bilaterally. EXTREMITIES: No clubbing, cyanosis, or edema. Calves are nontender to palpation. GASTROINTESTINAL: Abdomen is soft, nontender, nondistended. Bowel sounds are positive. SKIN: No acute rash. NEUROLOGIC: Limited at the present time. IMPRESSION: 1. Acute bronchitis. 2. Advanced chronic obstructive pulmonary disease. 3. Respiratory insufficiency. 4. Right lower lobe pneumonia. 5. Cardiac arrhythmias. PLAN: The patient appears very comfortable this morning. He is not short of breath at rest. He states he is feeling much, much better overall. On physical exam, his lungs remain clear. Oxygen saturation on nasal cannula is 97 %. I will continue with the current nebulizer treatments and oral steroids ( decreased yesterday) for now. The patient remains on antibiotic therapy -- as per infectious disease. There are no temperatures noted. There is no leukocytosis. Clinical status of the patient is significantly improved -- compared to the initial presentation. However, again, the future status/ prognosis of this patient - with advanced chronic obstructive pulmonary disease and pulmonary cachexia -- remains very guarded. I will discuss the above with the attending physician. Mic Emerson MD cc: [id number] TT: 01/15/2017 10:20:04 Confirmation # [id number] Dictation # [id number] maurice OSORIO
[2017-01-15] MEDS: Nystatin 100,000 Units/ml Oral Susp 5 ml UD PO SCH ×4 (11:09→21:16)
--- NOTE | 2017-01-15 11:10 | PN ---
DATE: 01/15/2017 I saw him resting comfortably in bed in the transitional care unit with his family member present. He is happy. He is smiling. He slept well. He is eating well, walking well, feeling better, breathing better and he tells me he is not going to smoke cigarettes anymore. He wants albuterol inhaler at home when he gets discharged. MEDICATIONS: He is on the albuterol inhaler, Doryx, heparin, Norvasc, nystatin , prednisone, Protonix, Pulmicort, Rocephin, and Xanax. PHYSICAL EXAMINATION: VITAL SIGNS: 97.8 temp, 95 pulse, 107/76 blood pressure, 20 respiratory rate, 94% O2 sat on 3 L nasal cannula. HEENT: His head is atraumatic, normocephalic. HEART: Regular rate. LUNGS: Decreased breath sounds, almost no air movement at all. ABDOMEN: Soft, scaphoid. EXTREMITIES: No edema. He is very thin and frail. He is being seen by pulmonary, infectious disease and renal. He is here for acute bronchitis, advanced chronic obstructive pulmonary disease, renal insufficiency, right pneumonia, hypertension, low sodium, coronary artery disease, pulmonary hypertension. LABORATORY DATA: He has a 6.5 white count, 13.6 hemoglobin, 40.4 hematocrit with 231 platelets, 128 sodium, sodium is still a little bit low. As per renal , we will continue to follow. Hopefully, we get the low sodium elevated. We will check his labs tomorrow. I discussed with the family member at length and the patient, answered many questions and he will participate in physical therapy and diet . Dc Das DO cc: [id number] TT: 01/15/2017 11:09:52 Confirmation # [id number] Dictation # [id number] maurice OSORIO
--- NOTE | 2017-01-15 14:11 | PN ---
DATE: 01/15/2017 The patient seen earlier today in room 316. The patient is in bed, no acute distress, nontoxic PHYSICAL EXAMINATION: VITAL SIGNS: Temperature is 97, blood pressure is 107/70, respiratory rate of 20, heart rate of 95. HEENT: Unremarkable. NECK: Supple. LUNGS: Decreased breath sounds. HEART: Normal S1, S2. ABDOMEN: Soft. LABORATORY EXAMINATION: Reveals a white count of 6.5, hemoglobin 13, platelets of 231 and procalcito timo of 0.11. Urinalysis is noted. Microbiology is noted. The patient's blood culture is no growth. Nasal MRSA is not detected. ASSESSMENT AND PLAN: A 66-year-old male with sepsis, lower lobe community-acquired pneumonia, hypert ension, chronic obstructive lung disease, severe pulmonary hypertension. Today is day #6 with a norm al procalcitonin. The patient is doing well. We will discontinue the antibiotics. The patient is o n prednisone, afebrile. The patient is at risk for developing nosocomial infections. Rigoberto Moreland MD cc: [id number] TT: 01/15/2017 14:10:25 Confirmation # [id number] Dictation # [id number] tn
[2017-01-16] MEDS: Pantoprazole 40 mg Susp UD PO SCH (05:52)
[2017-01-16 07:35] LABS: HEMATOCRIT 44.5 % (42.0-52.0); MEAN CELL VOLUME 93.9 fL (80.0-105.0); MEAN CORPUSCULAR HEMOGLOBIN 31.6 pg (25.0-35.0); MEAN CORPUSCULAR HGB CONC 33.7 g/dl (31.0-37.0); MEAN PLATELET VOLUME 8.4 fl (7.0-11.0)
[2017-01-16] MEDS: Budesonide 0.5 mg/2 ml Inhal Susp UD IH SCH ×2 (07:40→21:24)
[2017-01-16] MEDS: Albuterol 0.042% Inhal Sol (1.25 mg/3 mL) UD IH SCH ×4 (07:40→21:24)
[2017-01-16 07:45] LABS: ALB/GLOB RATIO 1.1 (1.1-1.8); ALKALINE PHOSPHATASE 52 U/L (38-133); ALT/SGPT 81 U/L (7-56); AST/SGOT 38 U/L (15-59); BILIRUBIN,TOTAL 1.1 mg/dL (0.2-1.3); BLOOD UREA NITROGEN 30 mg/dL (7-21); CALCIUM 9.3 mg/dL (8.4-10.5); CHLORIDE 89 mmol/L (98-107); GFR AFRICAN-AMERICAN > 60; GLUCOSE,RANDOM 68 mg/dL (70-110); POTASSIUM 4.4 mmol/L (3.6-5.0); SODIUM 134 mmol/L (132-148); TOTAL PROTEIN 6.8 g/dL (5.8-8.3)
[2017-01-16 07:51] LABS: CARBON DIOXIDE 40 mmol/L (21-33)
--- NOTE | 2017-01-16 08:18 | PN ---
DATE: 01/16/2017 SUBJECTIVE: The patient appears comfortable this morning. He is not short of breath at rest. PHYSICAL EXAMINATION: VITAL SIGNS: Temperature is 98.1, pulse 70, respirations 18/20, blood pressure 141/58. Oxygen saturation on nasal cannula is 99%. HEENT: Normocephalic, atraumatic. No JVD. CARDIOVASCULAR: Positive S1, S2. No S3. LUNGS: Clear bilaterally. EXTREMITIES: No clubbing, cyanosis, or edema. Calves are nontender to palpation. GASTROINTESTINAL: Abdomen is soft, nontender, nondistended. Bowel sounds are positive. SKIN: No acute rash. NEUROLOGIC: Limited at the present time. IMPRESSION: 1. Acute bronchitis. 2. Advanced chronic obstructive pulmonary disease. 3. Respiratory insufficiency. 4. Right lower lobe pneumonia. 5. Cardiac arrhythmias. PLAN: The patient appears very comfortable this morning. He is not short of breath at rest. He states he is feeling much better overall. On physical exam , his lungs remain clear. In addition, the oxygen saturation on nasal cannula is now 99%. I will continue with the current nebulizer treatments and oral steroids for now. The antibiotics have now been discontinued -- as per infectious disease. There are no temperatures noted. There is no leukocytosis. Clinical status of the patient is significantly improved -- compared to the initial presentation. However, again, the overall status/ prognosis of this patient -- with advanced chronic obstructive pulmonary disease and pulmonary cachexia -- remains very guarded. All are aware. I will discuss the above with Dr. Das. Mic Emerson MD cc: [id number] TT: 01/16/2017 08:17:45 Confirmation # [id number] Dictation # [id number] en MTDD
--- NOTE | 2017-01-16 09:28 | PN ---
DATE: 01/16/2017 The patient is in bed, in no acute distress. PHYSICAL EXAMINATION: VITAL SIGNS: Temperature is 97, blood pressure is 120/70, respiratory rate 16. HEENT: Unremarkable. NECK: Supple. LUNGS: Have decreased breath sounds. HEART: Normal S1, S2. ABDOMEN: Soft. LABORATORY EXAMINATION: Reveals a white count of 8, hemoglobin of 15, platelets noted. BUN of 30, c reatinine of 0.5. Urinalysis is noted. Microbiology is reviewed. ASSESSMENT AND PLAN: A 66-year-old male with sepsis and lower lobe community-acquired pneumonia, hyp ertension, chronic obstructive lung disease, severe pulmonary hypertension. The patient had complete d antibiotics, is now off of antibiotics. Review of medication reveals the patient has completed the antibiotics. The patient is on prednisone p.o. and off of antibiotics, afebrile and he is at risk f or developing nosocomial infections. Rigoberto Moreland MD cc: 350 TT: 01/16/2017 09:27:57 Confirmation # [id number] Dictation # [id number] en
[2017-01-16] MEDS: Nystatin 100,000 Units/ml Oral Susp 5 ml UD PO SCH ×4 (11:15→21:14)
--- NOTE | 2017-01-16 12:13 | PN ---
DATE: 01/16/2017 He is in the transitional care unit, resting in bed, sleeping well, oxygen is on. He is supposed to go home tomorrow, that is Tuesday. He is doing much better. He is breathing better. He is on oxygen. We have to make a decision if he goes home on oxygen or not. We will check a pulse ox on room air. He is happy, he is eating, he is doing well in physical therapy, he is taking his antibiotics well. PHYSICAL EXAMINATION: VITAL SIGNS: He has a 98.1 temp, 70 pulse, 141/58 blood pressure, 20 respiratory rate, 99% O2 sat on nasal cannula 3 liters. HEENT: His head is atraumatic, normocephalic. HEART: Regular rate. LUNGS: Decreased breath sounds completely, no rales or rhonchi though. ABDOMEN: Soft. EXTREMITIES: No edema. He is currently on albuterol, heparin, Norvasc, nystatin, prednisone, Protonix, Pulmicort, and Xanax. He has an 8 white count, 15 hemoglobin, 44.5 hematocrit, 254 platelets. Sodium 134, potassium 4.4, BUN 30, creatinine 0.5, GFR is greater than 60, sugar is 68 , calcium is 9.3, total bili is 1.1, AST is 38, ALT is 81, alk phos 52, total protein 6.8. He is being seen by infectious disease and pulmonary. He is here for acute bronchitis, advanced chronic obstructive pulmonary disease, respiratory failure , right lower lobe pneumonia, cardiac arrhythmias. his medication list. We will continue with current therapy and we will check his labs tomorrow. We will make decisions on his pulse ox and oxygen at home and his nebulizer treatments at home and tomorrow should be his discharge day. Dc Das DO cc: [id number] TT: 01/16/2017 12:13:12 Confirmation # [id number] Dictation # [id number] en MTDD
[2017-01-17] MEDS: Albuterol 0.042% Inhal Sol (1.25 mg/3 mL) UD IH SCH ×4 (01:15→11:16)
[2017-01-17] MEDS: Pantoprazole 40 mg Susp UD PO SCH (05:30)
--- NOTE | 2017-01-17 07:44 | PN ---
DATE: 01/17/2017 SUBJECTIVE: The patient appears very comfortable this morning. He is not short of breath at rest. OBJECTIVE: VITAL SIGNS: Temperature is 97.5, pulse 81, respirations 18, blood pressure 108 /71. Oxygen saturation on nasal cannula--96%. HEENT: Normocephalic, atraumatic. No JVD. CARDIOVASCULAR: Positive S1, S2. No S3. LUNGS: Clear bilaterally. EXTREMITIES: No clubbing, cyanosis, or edema. Calves are nontender to palpation. GASTROINTESTINAL: Abdomen is soft, nontender, nondistended. Bowel sounds are positive. SKIN: No acute rash. NEUROLOGIC: Limited at the present time. IMPRESSION: 1. Acute bronchitis. 2. Advanced chronic obstructive pulmonary disease. 3. Respiratory insufficiency. 4. Right lower lobe pneumonia. 5. Cardiac arrhythmias. PLAN: The patient appears very comfortable this morning. He is not short of breath at rest. He states he is feeling much, much better overall. On physical exam, his lungs remain clear. Oxygen saturation on nasal cannula is 96 %. The patient is now off antibiotic therapy - as per infectious disease. There are no temperatures noted. There is no leukocytosis. Clinical status of the patient is significantly improved - compared to the initial presentation. The patient is for discharge in the very near future. In spite of the patient' s significant clinical improvement - the overall status/prognosis for this patient - with advanced chronic obstructive pulmonary disease and pulmonary cachexia - does remain guarded. All are aware. I will discuss the above with Dr. Das this morning. Mic Emerson MD cc: [id number] TT: 01/17/2017 07:43:50 Confirmation # [id number] Dictation # [id number] adams OSORIO
[2017-01-17] MEDS: Budesonide 0.5 mg/2 ml Inhal Susp UD IH SCH (08:38)
--- NOTE | 2017-01-17 08:47 | DS ---
He is resting comfortably in bed. He is now off the antibiotics. He is happy to go home. I discuss ed at length with the cruise counselor what he needs to be on. He will have home oxygen. He will have home nebulizer treatments. He is going to have albuterol by nebulizer treatments, amlodipine, nystatin, prednisone 30 for 3 days, 20 for 3 days, 10 for 2 days an d stop, Protonix 40, Advair 250/50 one puff twice a day, Xanax 0.5 at nighttime and oxygen at home. He will be followed up in the next week. He is not allowed to smoke anymore because he has oxygen at home, and it is also going to kill him. He understands that. He has severe COPD, pneumonia, renal insufficiency, acute bronchitis, hypertension, low sodium, coronary artery disease, pulmonary hyperte nsion. Hopefully, he will behave, be well, and that is the plan. He will follow up in the office in a week. PHYSICAL EXAMINATION: VITAL SIGNS: Temp 97.5, 81 pulse, 108/71 blood pressure, 18 respiratory rate, 91% O2 sat on nasal ca nnula. HEAD: Atraumatic, normocephalic. HEART: Regular rate. LUNGS: Decreased breath sounds, but clear. No wheezes, no rhonchi, no rales, but poor inspiration. ABDOMEN: Soft. EXTREMITIES: No edema. LABORATORY DATA: He has an 8 white count, 15 hemoglobin, 44.5 hematocrit with 254 platelets. Sodium 134. Potassium is 4.4. BUN is 30. Creatinine is 0.5. GFR is greater than 60. Sugar is 68. Calc ium is 9.3. Total bili is 1.1. AST is 38. ALT is 81. Alk phos 52, total protein 6.8. He is discharged from TCU to go home. He should be followed up in a week. Dc Das DO cc: [id number] TT: 01/17/2017 08:47:03 maxi
[2017-01-17 10:30] VITALS: BP 102/74; PULSE 93; RESP 20; TEMP 97.7; O2SAT 98
[2017-01-17] MEDS: Nystatin 100,000 Units/ml Oral Susp 5 ml UD PO SCH ×2 (10:56→14:06)
--- NOTE | 2017-01-17 15:10 | CP.PCM.PN ---
Subjective - Date & Time of Evaluation Date of Evaluation: 01/17/17 Time of Evaluation: 11:50 - Subjective Subjective: Follow up nephrology note Assessment: Mild hyponatremia ? Volume status (appears euvolemic clinically although difficult to ascertain considering his cachexic status. 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 pt was educated about it. smoking cessation Further work up/management of pneumonia/COPD as per primary team Thanks for allowing me to participate in care of your patient. d/c in office with me 1-2 week after discharge. Please call if any Qs Dr Quinton Rush ([address] [place] [address]) Office: [phone] ROS: feels better. Cough better. denies SOB. appetite okay. making urine without difficulty. Physical Examination: General Appearance: Comfortable, in no acute respiratory distress, co-operative . appears cachexic Vitals reviewed and noted as below Head; Atraumatic, normocephalic ENT: no ulcers resolved thrush. Tongue is midline. Oropharynx: no rash or ulcers. Lungs: Normal respiratory rate/effort. Breath sounds decreased at Rt base with crackles. Heart: Normal rate. s1s2 normal. No rub or gallop. Extremities: no edema. No varicose veins Neurological: Patient is alert, awake and oriented to person, place and time. No focal deficit. Strength bilateral appropriate and equal Skin: Warm and dry. Normal turgor. No rash. Palpitation: Normal elasticity for age Abdomen: Abdomen is soft. Bowel sounds +. There is no abdominal tenderness, no guarding/rigidity or organomegaly : kidney or bladder not palpable Labs/imaging reviewed. Past medical history, past surgical history, family history, social history, allergy reviewed Work up; Serum Osmol 284 Uric acid 2.1 TSH 1.4 Triglycer[address] chest: COPD with emphysema and RLL pneumonia. no lung mass Echo: moderate reduced RV function and >50% compressibility of IVC Urine Na 122 and osmol 599 AM cortisol 4.1 but pt on steroids Objective - Vital Signs/Intake and Output Vital Signs (last 24 hours): Temp Pulse Resp BP Pulse Ox 97.7 F 93 H 20 102/74 98 01/17/17 10:00 01/17/17 10:00 01/17/17 10:00 01/17/17 10:55 01/17/17 10:00 - Medications Medications: Current Medications Albuterol Sulfate (Albuterol 0.042% Inhal Beth[place] (1.25mg/3ml) Ud) 1.25 mg IH [id number] [facility] Last Admin: 01/17/17 11:16 Dose: 1.25 mg Alprazolam (Xanax) 0.5 mg PO HS PRN; Protocol PRN Reason: Anxiety Amlodipine Besylate (Norvasc) 2.5 mg PO DAILY [facility] Last Admin: 01/17/17 10:55 Dose: 2.5 mg Budesonide (Pulmicort Respules) 0.5 mg IH [id number] [facility] Last Admin: 01/17/17 08:38 Dose: 0.5 mg Heparin Sodium (Porcine) (Heparin) 5,000 units SC 0600,1800 [facility] PRN Reason: Protocol Last Admin: 01/17/17 05:29 Dose: 5,000 units Nystatin (Nystatin Oral Susp) 5 ml PO QID [facility] Stop: 01/18/17 18:01 Last Admin: 01/17/17 14:06 Dose: 5 ml Pantoprazole Sodium (Protonix Susp) 40 mg PO 0630 [facility] Last Admin: 01/17/17 05:30 Dose: 40 mg Prednisone (Prednisone Tab) 30 mg PO DAILY [facility] Last Admin: 01/17/17 10:56 Dose: 30 mg - Labs Labs: 01/16/17 07:00 01/16/17 07:00
--- NOTE | 2017-01-17 18:29 | CP.PCM.PN ---
Subjective - Date & Time of Evaluation Date of Evaluation: 01/17/17 Time of Evaluation: 10:25 - Subjective Subjective: Comfortable in bed, not in distress, no fevers overnight. Objective - Vital Signs/Intake and Output Vital Signs (last 24 hours): Temp Pulse Resp BP Pulse Ox 97.7 F 93 H 20 102/74 98 01/17/17 10:00 01/17/17 10:00 01/17/17 10:00 01/17/17 10:55 01/17/17 10:00 - Labs Labs: 01/16/17 07:00 01/16/17 07:00 - Constitutional Appears: Non-toxic, No Acute Distress - Head Exam Head Exam: NORMAL INSPECTION - ENT Exam ENT Exam: Mucous Membranes Moist - Neck Exam Neck Exam: absent: Lymphadenopathy, Meningismus - Respiratory Exam Respiratory Exam: Decreased Breath Sounds - Cardiovascular Exam Cardiovascular Exam: +S1, +S2 - GI/Abdominal Exam GI & Abdominal Exam: Soft. absent: Tenderness Assessment and Plan - Assessment and Plan (Free Text) Plan: Assessment S/P sepsis due to right lower lobe community-acquired pneumonia, clinically improved and S/P treatment HTN COPD severe pulmonary HTN CAD Plan Continue to monitor off antibiotics since he is at risk for nosocomial infections
== END 2017-01-17 15:58 | disposition home or self-care (01) | DRG 190 ==
LOC: TRCU 13:38
PROVIDERS: ADMIT Family Medicine; ATTEND Family Medicine
PROC: 3E0F7GC Introduction of Other Therapeutic Substance into Respiratory Tract, Via Natural or Artificial Opening (ICD-10-PCS; 2017-01-09)
PROC: F07Z9ZZ Gait Training/Functional Ambulation Treatment (ICD-10-PCS; principal; 2017-01-10)
PROC: F08Z4ZZ Home Management Treatment (ICD-10-PCS; 2017-01-11)
DX: J44.0 Chronic obstructive pulmonary disease with (acute) lower respiratory infection (principal); J18.9 Pneumonia, unspecified organism; Z79.2 Long term (current) use of antibiotics; R64 Cachexia; J44.1 Chronic obstructive pulmonary disease with (acute) exacerbation; J20.9 Acute bronchitis, unspecified; E87.2 Acidosis; E22.2 Syndrome of inappropriate secretion of antidiuretic hormone; I27.2 Other secondary pulmonary hypertension; F17.210 Nicotine dependence, cigarettes, uncomplicated; I25.10 Atherosclerotic heart disease of native coronary artery without angina pectoris; I10 Essential (primary) hypertension; N28.9 Disorder of kidney and ureter, unspecified